=== PATIENT | male | born 1945 | race Caucasian/White ===

== ENCOUNTER 2022-11-13 01:40 | Emergency (ER) | payer MEDICARE, BC, SELFPAY ==
[2022-11-13 01:48] VITALS: BP 159/77; PULSE 54; RESP 16; TEMP 36.7; O2SAT 94
--- NOTE | 2022-11-13 02:33 | ED_ITS ---
HPI - General Adult General Date Seen: 11/13/22 Chief complaint: Post Op Complication Stated complaint: post op bleeding, right arm Time Seen by Provider: 11/13/22 01:47 Source: patient Mode of arrival: ambulatory Limitations: no limitations History of Present Illness HPI narrative: Patient is a 77-year-old male who underwent an excision of a skin lesion on his right elbow by Dr. Benitez yesterday. He had an elliptical excision of approximately 2 x 3 cm. He takes Eliquis and aspirin and these were not held prior to the procedure. The bleeding was controlled in the office without any type of closure. A few hours later he had blood running down his arm did not stop with 30 minutes of compression. He called her office and was instructed to go to the emergency department. He comes in with several layers of gauze, paper towels, cloth towel and is bleeding through them. He denies pain. He tells me that she did not want to put in any stitches because she may have to go back in and do a deeper excision based on the results of the pathology. He is not scheduled to follow-up for at least two weeks. Related Data Allergies Allergy/AdvReac Type Severity Reaction Status Date / Time No Known Drug Allergies Allergy Verified 11/13/22 01:51 Review of Systems Narrative: He has atrial fibrillation, hypertension, hyperlipidemia, history of CVA, obstructive sleep apnea, multiple orthopedic procedures. He has some chronic back pain but offers no other concerns tonight. Review of systems is otherwise noted to be negative. His electronic medical record is updated. [facility] Medical History (Updated 11/13/22 @ 02:33 by Terrell Campos MD) ASCVD (arteriosclerotic cardiovascular disease) ?I25.10 - Atherosclerotic heart disease of [place] coronary artery without angina pectoris (ICD-10) Osteoarthritis ?M19.90 - Unspecified osteoarthritis, unspecified site (ICD-10) Bimalleolar ankle fracture ?S82.843A - Displaced bimalleolar fracture of unspecified lower leg, initial encounter for closed fracture (ICD-10) Morbid obesity ?E66.01 - Morbid (severe) obesity due to excess calories (ICD-10) Erectile dysfunction ?N52.9 - Male erectile dysfunction, unspecified (ICD-10) History of CVA (cerebrovascular accident) ?Z86.73 - Personal history of transient ischemic attack (TIA), and cerebral infarction without residual deficits (ICD-10) Hyperlipidemia ?E78.5 - Hyperlipidemia, unspecified (ICD-10) Obstructive sleep apnea on CPAP ?G47.33 - Obstructive sleep apnea (adult) (pediatric) (ICD-10) Hypertension ?I10 - Essential (primary) hypertension (ICD-10) Atrial fibrillation ?I48.91 - Unspecified atrial fibrillation (ICD-10) Surgical History (Updated 11/13/22 @ 02:29 by Terrell Campos MD) History of total right hip arthroplasty ?Z96.641 - Presence of right artificial hip joint (ICD-10) Social History Non-prescribed substance use: denies use Exam Narrative: Exam Narrative: He is awake and alert and in no distress. Lungs are clear. Heart is irregularly irregular. No pitting peripheral edema. I unwrapped his right elbow. There is a 2 x 3 cm full-thickness defect. There is a clot adherent to the base of this wound. There is bleeding from the cut edges on all sides. No evidence of infection. There is exposed tendon but no exposed bone. Const: Vital Signs, click to edit/add: Vital Signs - 24 hr 11/13/22 01:48 Temperature 98.0 F Pulse Rate [Left P ulse Oximeter] 54 L Respiratory Rate 16 Blood Pressure [Ri ght Upper Arm] 159/77 H Pulse Oximetry 94 Oxygen Delivery Me thod Room Air Course Course Hospital Course: Wound is under wrapped and cleaned up. I placed two pieces of Gelfoam within the wound. These completely covered and filled the wound. The area is wrapped and he will be observed for 30 minutes to see if this controls the bleeding. Reevaluation(s) Reevaluation #1: Upon recheck there is no further bleeding. A gauze wrap is placed and he is discharged home in the care of his . Vital Signs Vital signs: Initial Vital Signs Temperature 98.0 F 11/13/22 01:48 Temperature Source Temporal Artery Scan 11/13/22 01:48 Pulse Rate 54 L 11/13/22 01:48 Pulse Rhythm Regular 11/13/22 01:48 Respiratory Rate 16 11/13/22 01:48 Blood Pressure 159/77 H 11/13/22 01:48 Blood Pressure Mean 104 11/13/22 01:48 Blood Pressure Position Semi-Fowlers 11/13/22 01:48 Pulse Oximetry 94 11/13/22 01:48 Oxygen Delivery Method Room Air 11/13/22 01:48 Vital Signs Temperature 98.0 F 11/13/22 01:48 Pulse Rate 54 L 11/13/22 01:48 Respiratory Rate 16 11/13/22 01:48 Blood Pressure 159/77 H 11/13/22 01:48 Pulse Oximetry 94 11/13/22 01:48 Oxygen Delivery Method Room Air 11/13/22 01:48 Temperature 98.0 F 11/13/22 01:48 Pulse Rate 54 L 11/13/22 01:48 Respiratory Rate 16 11/13/22 01:48 Blood Pressure 159/77 H 11/13/22 01:48 Pulse Oximetry 94 11/13/22 01:48 Oxygen Delivery Method Room Air 11/13/22 01:48 Discharge Plan Discharge Clinical Impression: Post-op bleeding Qualifiers: Surgical complication system/body Area: skin Procedure type: dermatologic Qualified Code(s): L76.21 - Postprocedural hemorrhage of skin and subcutaneous tissue following a dermatologic procedure Patient Disposition: Home, Self-Care Condition: Improved Additional Instructions: Stop Eliquis for five days. Continue aspirin. Use the right arm as little as possible for the next 48 hours. Return emergency department for bleeding that will not stop with 30 minutes of compression. Follow Up/Referrals: Huy Espinal MD [Primary Care Provider] - Stand Alone Forms: [facility]
[2022-11-13 03:15] VITALS: BP 152/86; PULSE 58; RESP 18; O2SAT 95
== END 2022-11-13 03:16 | disposition home or self-care (01) ==
LOC: ED 02:36
PROVIDERS: Emergency Provider Family Medicine; PCP Family Medicine
DX: L76.21 Postprocedural hemorrhage of skin and subcutaneous tissue following a dermatologic procedure (principal)
CPT/HCPCS: 99282

== ENCOUNTER 2023-08-19 08:37 | Day surgery (SDC) | payer MEDICARE, BC, SELFPAY ==
[2023-08-19] VITALS (9 sets, daily range): BP systolic 126–194; BP diastolic 67–106; PULSE 47–62; RESP 16; TEMP 36.3–36.8; O2SAT 94–96; BMI 49.1
[2023-08-19] MEDS: LACTATED RINGERS 1000 ML 1,000 ML 100 ML IV (08:40)
--- OUTSIDE RECORDS SUMMARY | 2023-08-19 08:40 | XMS_ITS | Clinical Summary ---
Author Name Unknown Organization [facility] Address [place], [place] [address] Care Team Providers Care Database Marketing Manager Name Role Phone Huy Espinal MD Primary Care Provider [phone] Social History Tobacco Use Types Packs/Day Years Used Date Smoking Tobacco: Never Assessed Sex and Gender Information Value Date Recorded Sex Assigned at Not on file Gender Identity Not on file Sexual Orientation Not on file Plan of Treatment Health Maintenance Due Date Last Done Comments Tdap 1956 Depression screening for age 12+ 1957 BMI (ht and wt on same day) for age 18+ 09/29/1963 Hepatitis C screening for age 18-79 09/29/1963 Tetanus booster 1965 Zoster (shingles) series for age 50+ (1 of 2) 09/29/1995 Pneumococcal series for age 65+ (1 of 1 - PCV) 2010 COVID-19 vaccine series (2022- season) 2022 02/20/2021, 06/27/2020, 05/30/2020 Influenza for age 65+ 12/05/2023 Care Teams Database Marketing Manager Relationship Specialty [place] [id number] [id number] PCP - General 09/11/08
--- OUTSIDE RECORDS SUMMARY | 2023-08-19 08:41 | XMS_ITS | Encounter Summary ---
Author Name Unknown Organization [facility] Address [address] [place] [address] Care Team Providers Care Duct Maker Name Role Phone Suad Parikh M.D. Primary Care Provider [phone] Reason for Referral * Outpatient (Routine) - Authorized Specialty Diagnoses / Procedures Referred By Kendra benitez Referred To Contact Diagnoses Occlusion And Stenosis Left Carotid Artery Procedures US Carotid Bilateral Suad Parikh M.D. [id number] [place] [phone] [facility] Region Referral ID Status Reason Start Date Expiration Date V isits Requested Visits Authorized [id number] Authorized 08/02/2023 08/01/2024 1 1 * Outpatient (Routine) - Authorized Specialty Diagnoses / Procedures Referred By Kendra t Referred To Contact Diagnoses Preoperative Exam Procedures ECG 12 Lead Suad Parikh M.D. [address] [place] [phone] [facility] Region Referral ID Status Reason Start Date Expiration Date V isits Requested Visits Authorized [id number] Authorized 08/02/2023 08/01/2024 1 1 * Outpatient (Routine) - Authorized Specialty Diagnoses / Procedures Referred By Kendra t Referred To Contact Family Medicine Suad Parikh M.D. [address] [place] [phone] [facility] Region Referral ID Status Reason Start Date Expiration Date V isits Requested Visits Authorized [id number] Authorized 08/02/2023 01/31/2025 1 1 Reason for Visit * Reason Comments Pre-op Exam Joint surgery on lef t had 08/17 in [place]. * Appointment Request (Routine) - Closed Specialty Diagnoses / Procedures Referred By Contac t Referred To Contact Family Medicine Referral ID Status Reason Start Date Expiration Date Visits Re quested Visits Authorized [id number] Closed 04/20/2023 04/19/2024 1 1 Encounter Details Date Type Department Care Team (Late st Contact Info) Description 08/02/2023 9:30 AM CDT Office Visit Department of Family Medicine, [facility], in [address] [phone] Suad Parikh M.D. [address] [place] [phone] Preoperative Exam (Primary Dx); PreDiabetes; Morbid Obesity Body Mass Index >= 35 with Comorbid Condition (HCC); Atrial Fibrillation Unspecified (HCC); Occlusion And Stenosis Left Carotid Artery; Hypothyroidism Subclinical; History Of Falling; Hypertensive Heart Disease Without Heart Failure Discharge Disposition: Home or Self Care Social History Tobacco Use Types Packs/Day Years Used Date Smoking Tobacco: Former Cigarettes 1.5 40.5 0 1966 - 04/05/2007 Smokeless Tobacco: Never Tobacco Cessation:Counseling Given: Not Answered Alcohol Use Standard Drinks/Week Comments Yes 0 (1 standard drink = 0.6 oz pur e alcohol) [facility] Utilities Answer Date Recorded In the past 12 months has e NPS, gas, oil, or water [employer] threatened to shut off services in your home? No 07/28/2023 Humiliation, Afraid, Rape, and Kick questionnair e Answer Date Recorded Within the last year, have y ou been afraid of your partner or ex-partner? No 01/19/2023 Within the last year, have y ou been humiliated or emotionally abused in other ways by your partner or ex-partner? No Within the last year, have y ou been kicked, hit, slapped, or otherwise physically hurt by your partner or ex-partner? No 01/19/2023 Within the last year, have y ou been raped or forced to have any kind of sexual activity by your partner or ex-partner? No 01/19/2023 Social Connection and Isolat ion Panel [NHANES] Answer Date Recorded In a typical week, how many times do you talk on the phone with family, friends, or neighbors? More than three times a week 12/25/2021 How often do you get togethe r with friends or relatives? Twice a week 12/25/2021 How often do you attend chur ch or latter day services? 1 to 4 times per year 12/25/2021 Do you belong to any clubs o r organizations such as spiritism groups, unions, fraternal or athletic groups, or school groups? No 12/25/2021 How often do you attend meet ings of the clubs or organizations you belong to? Never 12/25/2021 Are you , , di vorced, , never , or living with a partner? 12/25/2021 AUDIT-C Answer Date Recorded Q1: How often do you have a drink containing alc ohol? Monthly or less 12/25/2021 Q2: How many drinks containi ng alcohol do you have on a typical day when you are drinking? 1 or 2 12/25/2021 Q3: How often do you have si x or more drinks on one occasion? Never 12/25/2021 Overall Financial Resource Strain (CARDIA) Answe r Date Recorded How hard is it for you to pa y for the very basics like food, housing, medical care, and heating? Not hard at all 01/19/2023 PHQ-2 Answer Date Recorded PHQ-2 Score 0 07/28/2023 [facility] - Occupational Stress Questionnaire Answer Date Recorded Do you feel stress - tense, restless, nervous, or anxious, or unable to sleep at night because your mind is troubled all the time - these days? Not at all 02/19/2021 Exercise Vital Sign Answer Date Recorde d On average, how many days pe r week do you engage in moderate to strenuous exercise (like a brisk walk)? 0 days 07/28/2023 On average, how many minutes do you engage in exercise at this level? 0 min 07/28/2023 Hunger Vital Sign Answer Date Recorded Within the past 12 months, y ou worried that your food would run out before you got the money to buy more. Never true 07/28/19 Within the past 12 months, t he food you bought just didn't last and you didn't have money to get more. Never true 07/28/2023 PRAPARE - Transportation Answer Date Re corded In the past 12 months, has l ack of transportation kept you from medical appointments or from getting medications? No 07/05 In the past 12 months, has l ack of transportation kept you from meetings, work, or from getting things needed for daily living? No 07/28/2023 Nutrition Answer Date Recorded On average, how many serving s of fruits and vegetables do you eat per day (serving size is equal to 1 cup or approximately the size of a tennis ball)? 3-5 07/28/2023 Dental Answer Date Recorded Dental: Regular Dentist Yes 04/17/19 Employment Answer Date Recorded Employment status Retired 07/28/2023 Housing Stability Answer Date Recorded What is your living situation today? I have a [facility] place to live 01/19/2023 Education Answer Date Recorded What is the highest level of school you have completed or the highest degree you have received? 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 Gender Identity Male 07/09/2017 9:38 PM CDT Sexual Orientation Straight 07/09/2017 9: 38 PM CDT documented as of this encounter Last Filed Vital Signs Vital Sign Reading Time Taken Comments Blood Pressure 138/81 08/02/2023 9:22 AM CDT Pulse 61 08/02/2023 9:22 AM CDT Temperature 36.4 ??C (97.5 ??F) 08/02/2023 9:22 AM CD T Respiratory Rate - - Oxygen Saturation 92% 08/02/2023 9:22 AM CDT Inhaled Oxygen Concentration - - Weight 115 kg (254 lb 6.6 oz) 08/02/2023 9:22 AM CDT Height - - Body Mass Index 35.82 01/19/2023 9:34 AM CDT documented in this encounter Patient Instructions * Patient Instructions* Suad Parikh M.D. - 08/02/2023 9:30 AM CDT - Hold Eliquis for 5 days prior to surgery. - Hold furosemide on the morning of your surgery. - Hold losartan on the morning of your surgery. - Hold chlorthalidone on the morning of your surgery. - Continue remainder of prescription medications through day of surgery. documented in this encounter H&P Notes * Suad Parikh M.D. - 08/02/2023 9:30 AM CDT REASON FOR VISIT Pre-operative evaluation of risk HISTORY OF PRESENT ILLNESS Sandeep Topete is a 77 y.o. male who presents to the clinic today for a pre-op. He is feeling well with no recent illness. ALLERGIES No Known Allergies MEDICATIONS Current Outpatient Medications on File Prior to Visit Medication Sig Dispense Refill apixaban (Eliquis) 5 mg tablet Take 1 tablet (5 mg total) by mouth 2 (two) times a day. 180 tablet [address] tablet Take 1 tablet (81 mg total) by mouth daily. 90 tablet 11 atorvastatin (LIPITOR) 20 mg tablet Take 1 tablet (20 mg total) by mouth daily. 90 tablet 3 B complex-vitamin (SUPER B-50) capsule Take 1 capsule by mouth daily. chlorthalidone (HYGROTON) 25 mg tablet Take 1 tablet (25 mg total) by mouth daily. 90 tablet 11 cholecalciferol (VITAMIN D3) 50 mcg (2,000 Unit) tablet Take 2,000 Units by mouth daily. co-enzyme Q-10 (CO Q-10) 100 mg capsule Take 100 mg by mouth daily. dilTIAZem CD (CARDIZEM CD/CARTIA XT) 120 mg 24 hr capsule Take 1 capsule (120 mg total) by mouth daily. 90 capsule 11 finasteride (PROSCAR) 5 mg tablet Take 1 tablet (5 mg total) by mouth daily. 90 tablet 11 furosemide (LASIX) 20 mg tablet Take 1 tablet (20 mg total) by mouth daily as needed (pedal edema).90 tablet 11 Lactobacillus acidophilus capsule Take 1 capsule by mouth 2 (two) times a day with meals. losartan (COZAAR) 100 mg tablet Take 1 tablet (100 mg total) by mouth daily. 90 tablet 11 magnesium citrate 100 mg tablet Take 100 mg by mouth daily. metoprolol succinate (TOPROL-XL) 100 mg 24 hr tablet Take 1 tablet (100 mg total) by mouth daily. Do not crush or chew. 90 tablet 11 multivitamin tablet Take 1 tablet by mouth daily. omega-3 fatty acids-fish oil 300-1,000 mg capsule Take 2 g by mouth daily. omeprazole (PriLOSEC) [address] capsule Take 1 capsule (20 mg total) by mouth daily. 90 capsule 11 sildenafiL (Viagra) 100 mg tablet Take 1 tablet (100 mg total) by mouth daily as needed for erectile dysfunction. 30 tablet 11 tamsulosin (FLOMAX) 0.4 mg 24 hr capsule Take 1 capsule (0.4 mg total) by mouth daily. 90 capsule 11 traMADoL (ULTRAM) 50 mg tablet Take 1-2 tablets (50-100 mg total) by mouth every 6 (six) hours as needed for moderate pain or score 4-6 of 10 Indications: Chronic Pain/Nonacute Pain. 20 tablet 0 traZODone (DESYREL) 50 mg tablet Take 1-4 tablets (50-200 mg total) by mouth at bedtime as needed for sleep. 360 tablet 11 vitamin E 100 unit capsule Take 100 Units by mouth daily. clotrimazole-betamethasone (LOTRISONE) 1-0.05 % cream Apply topically 2 (two) times a day as needed(rash). 30 g 2 [DISCONTINUED] azithromycin (ZITHROMAX) 250 mg tablet Take 500 mg (2 tablets) by mouth the first day then 250 mg (1 tablet) by mouth for 4 more days. 6 tablet 0 No current facility-administered medications on file prior to visit. 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 Arthritis Hypercholesterolemia Loss Hearing Sensorineural Bilateral Obstructive Sleep Apnea Adult Atrial Fibrillation Unspecified (HCC) Insomnia Dysfunction Erectile History Of Falling Morbid Obesity Body Mass Index >= 35 with Comorbid Condition (HCC) PreDiabetes Occlusion And Stenosis Left Carotid Artery Past Medical History: Diagnosis Date Headache Chronic 11/04/2016 Hypogonadism Male 08/25/2016 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 COLONOSCOPY N/A 02/16/2019 Procedure: COLONOSCOPY; Surgeon: Emeterio Duran M.D.; Location: [facility] CACF OR ORIF ANKLE FRACTURE Right PROSTHETIC ARTHROPLASTY OF THE HIP Right Hip replacement ROTATOR CUFF REPAIR Bilateral left repair x 2 in 1988 and 2009, right repair in 2011 FAMILY HISTORY Family History Problem Relation Name Age of Onset Accident Mother Chelsea 24 House Fire COPD Father Edward Arthritis Sister Lacey Coronary artery disease Sister Lacey COPD Sister Lacey Diabetes Sister Lacey Heart disease Sister Lacey Hypertension Sister Lacey Kidney disease Sister Lacey No Known Problems Daughter Lashay No Known Problems Son Medhat Heart attack Mother's Brother Heart attack Maternal Grandmother Arthritis Other Half Brother - Rex Arthritis Other Chetan Coronary artery disease Other Chetan Cancer Other Chetan COPD Other Chetan Heart disease Other Chetan Hypertension Other Chetan Suicide Other Magalis Depression Other Magalis Arthritis Other Magalis Colon cancer Other Bernardino Arthritis Other Bernardino Coronary artery disease Other Ray Heart disease Other Ray Hypertension Other Ray Arthritis Other Ray Arthritis Other Adonis Arthritis Other Kareen PHYSICAL EXAM BP 138/81 (BP Location: Left arm, Patient Position: Sitting, Cuff Size: Large) Pulse 61 Temp 36.4 ??C Wt 115 kg SpO2 92% BMI 35.82 kg/m?? Vitals reviewed. Constitutional General: He is not in acute distress. Appearance: Normal appearance. HENT Mouth/Throat: Mouth: Mucous membranes are moist. Pharynx: Oropharynx is clear. Cardiovascular Rate and Rhythm: Normal rate and regular rhythm. Pulmonary Effort: Pulmonary effort is normal. Breath sounds: Normal breath sounds. Musculoskeletal Cervical back: Normal range of motion. Comments: 1+ pitting edema bilateral lower extremities. Skin General: Skin is warm and dry. Neurological Mental Status: He is alert. Mental status is at baseline. Psychiatric Mood and Affect: Mood normal. Behavior: Behavior normal. Thought Content: Thought content normal. Judgment: Judgment normal. Recent Results (from the past 24 hour(s)) Hemoglobin A1c Collection Time: 08/02/23 8:25 AM Result Value Hemoglobin A1c, B 6.4 (H) Thyroid Function [place] Collection Time: 08/02/23 10:17 AM Result Value TSH, Sensitive 6.7 (H) Basic Metabolic Panel Collection Time: 08/02/23 10:17 AM Result Value Potassium, P 3.4 (L) Sodium, P 141 Chloride, P 102 Bicarbonate, P 28 Anion Gap, P 11 BUN (Blood Urea Nitrogen), P 21 Creatinine 0.80 Estimated GFR (eGFR) >90 Calcium, Total, P 9.8 Glucose, P 127 CBC with Differential, Blood Collection Time: 08/02/23 10:17 AM Result Value Hemoglobin 15.5 Hematocrit 44.3 Erythrocytes 5.07 MCV 87.4 RBC Distrib Width 14.3 Platelet Count 147 Leukocytes 7.6 Neutrophils 4.89 Lymphocytes 1.08 Monocytes 1.29 (H) Eosinophils 0.24 Basophils 0.05 ECG 12 Lead Result Date: 08/02/2023 Atrial fibrillation with premature ventricular or aberrantly conducted complexes Nonspecific ST and T wave abnormality When compared with ECG of 27-Feb-2020 14:46, Premature ventricular or aberrantly conducted complexes are now present Reviewed by Rafael Mcgowan III, KUMAR ASSESSMENT / PLAN #1 Preoperative Exam #2 PreDiabetes #3 Morbid Obesity Body Mass Index >= 35 with Comorbid Condition (HCC) #4 Atrial Fibrillation Unspecified (HCC) #5 Occlusion And Stenosis Left Carotid Artery #6 Hypothyroidism Subclinical #7 History Of Falling #8 Hypertensive Heart Disease Without Heart Failure Sandeep Topete is a 77 y.o. male who I am asked to see in preoperative consult by Dr. Sheridan prior to undergoing L [facility] joint surgery. This is scheduled for 08/18/23. Patient is MEDICALLY ACCEPTABLE for planned procedure. RCRI as outlined below. Low risk but medically optimized. It is reasonable to proceed if surgery is indicated. Workup: - Recommended pre-op diagnostic workup to include: EKG, CBC, BMP ordered. Procedure risk: - Intermediate Risk (cardiac risk <5%): CEA, head/neck surgery, intraabdominal or intrathoracic surgery, orthopedic surgery, prostate surgery Cardiac risk: - History of ischemic heart disease: No (0) - History of heart failure: No (0) - History of cerebrovascular disease (stroke or TIA): Yes (+1) - Diabetes requiring pre-operative insulin: No (0) - Pre-operative creatinine >2: No (0) - High-risk surgery (intraperitoneal, intrathoracic, or suprainguinal vascular): No (0) Overall Cardiac Risk: RCRI score is Class II (1 point), indicating a 0.9% risk of a major cardiac event. Further cardiac workup prior to surgery to include: None Pulmonary Risk: - High risk diagnoses include: obstructive sleep apnea, compliant with CPAP. - Stop Bang Total Score: . Other: - DVT Risk: does not have increased risk. - Diabetes: The patient does not have diabetes. - Delirium Risk: does not have increased risk. Perioperative Medication Management: - Hold Eliquis for 5 days prior to surgery. - Hold furosemide on the morning of your surgery. - Hold losartan on the morning of your surgery. - Hold chlorthalidone on the morning of your surgery. - Continue remainder of prescription medications through day of surgery. #2 PreDiabetes #3 Morbid Obesity Body Mass Index >= 35 with Comorbid Condition (HCC) Hemoglobin A1c improved from 6.6 to 6.4. Recommend repeating a hemoglobin A1c in 6 months. #4 Atrial Fibrillation Unspecified (HCC) Rates are well controlled. He is on Eliquis. #5 Occlusion And Stenosis Left Carotid Artery He had a brain MRI/MRA completed through [facility] in 2020. He was noted to have moderate left carotid artery stenosis at that time. Will repeat a carotid ultrasound. 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 Workup was otherwise unrevealing. Low suspicion that thyroid dysfunction is contributing, however his TSH was mildly elevated when itwas last checked in 2018. Will repeat a thyroid function cascade today. #8 Hypertensive Heart Disease Without Heart Failure BP at goal. Suad Parikh M.D. documented in this encounter Miscellaneous Notes * Addendum Note - Suad Parikh M.D. - 08/02/2023 9:30 AM CDTAddended by: SUAD PARIKH on: 08/02/2023 05:30 PM Modules accepted: Orders documented in this encounter Plan of Treatment Upcoming Encounters Date Type Department Care Team (Late st Contact Info) Description 02/01/2024 8:30 AM CDT Appointment Department of Laboratory Medicine in [address] [phone] Suad Parikh M.D. [address] [place] [phone] 02/01/2024 9:30 AM CDT Office Visit Department of Family Medicine, [facility], in [address] [phone] Suad Parikh M.D. [address] [place] [phone] Discharge Disposition: Home or Self Care 02/01/2024 10:30 AM CDT Office Visit Department of Family Medicine, [facility], in [address] [phone] Suad Parikh M.D. [address] [place] [phone] Discharge Disposition: Home or Self Care Scheduled Orders Name Type Priority Associated Diagnoses Orde r Schedule Hemoglobin A1c Lab Routine PreDiabetes Expected: 02/01/2024, Expires: 10/31/2024 Carotid Bilateral Imaging RAD - Routi ne (most inpatients and all outpatients) Occlusion And Stenosis Left Carotid Artery Expected: 08/02/2023, Expires: 10/31/2024 Thyroid Function [place] Lab Routine Hypothyroidism Subclinical Expected: 08/01/2024, Expires: 10/31/2024 Scheduled Referrals Name Type Priority Associated Diagnoses Orde r Schedule Family Medicine office visit (clinic) Outpatient Referral Routine Expected: 02/01/2024, Expires: 10/31/2024 documented as of this encounter Goals Goal Patient Goal Type Associated Problems Recent Progress Patient-Stated? Author Patient/caregiver will be independent in managing appointments Arianna Thompson R.N. Note: Patient will schedule 2nd Shingrix Vaccine with pharmacy once it becomes available. documented as of this encounter Procedures Procedure Name Priority Date/Time Associated Diagnosis Comments HC T4 FREE Routine 08/02/2023 10:17 AM CDT THYROID FUNCTION CASCADE, S Routine 08/02/2023 10:17 AM CDT Hypothyroidism Subclinical THYROPEROXIDASE (TPO) ABS, S Routine 08/02/2023 10:17 AM CDT CBC WITH DIFFERENTIAL, B Routine 08/02/2023 10:17 AM CDT Preoperative Exam BASIC METABOLIC PANEL, S/P Routine 08/02/2023 10:17 AM CDT Preoperative Exam ECG Routine 08/02/2023 9:53 AM CDT Preoperative Exam documented in this encounter Results * T4 (Thyroxine), Free, Serum (08/02/2023 10:17 AM CDT) T4 (Thyroxine), Free, S 1.0 0.9 - 1.7 ng/dL 08/02/2023 3:49 PM CDT ECLR Comment: Biotin has been identified by the storage management consultant as a potential interfering substance. Higher concentrations of biotin may be found in multivitamins, hair/nail supplements, and workout supplements. If the result does not match clinical observations, repeat testing after patient refrains from the use of supplements for at least 12 hours. Blood 08/02/2023 10:1 7 AM CDT 08/02/2023 10:20 AM CDT Suad Parikh M.D. LAB BLOOD ADD-ON [facility] [address] [place] [id number], [place] ECLR [facility] in [address] [address] * Thyroperoxidase (TPO) Antibodies (08/02/2023 10:17 AM CDT) Thyroperoxidase Ab, S 6.1 <34.0 IU/mL 08/02/2023 4:32 PM CDT ECLR Blood 08/02/2023 10:1 7 AM CDT 08/02/2023 2:52 PM CDT Suad Parikh M.D. LAB BLOOD ADD-ON Performing Organization Address City/[facility]/ZIP Co de Phone Number [facility] [address] [place] [phone] [place] [address] [address] * (ABNORMAL) Thyroid Function [place] (08/02/2023 10:17 AM CDT) TSH, Sensitive 6.7(H) 0.3 - 4.2 mIU/L 08/02/2023 11:40 AM CDT CNFL Blood (Blood, Venous) 08/02/2023 10:17 AM CDT 08/02/2023 10:20 AM CDT Suad Parikh M.D. LAB BLOOD ADD-ON [facility] [address] [place] [phone], [place] CNFL [facility] in [address] [address] * (ABNORMAL) Basic Metabolic Panel (08/02/2023 10:17 AM CDT) Potassium, P 3.4(L) 3.6 - 5.2 mmol/L 08/02/2023 10:47 AM CDT CNFL Sodium, P 141 135 - 145 mmol/L 08/02/2023 10:47 AM CDT CNFL Chloride, P 102 98 - 107 mmol/L 08/02/2023 10:47 AM CDT CNFL Bicarbonate, P 28 22 - 29 mmol/L 08/02/2023 10:47 AM CDT CNFL Anion Gap, P 11 7 - 15 08/02/2023 10:47 AM CDT CNFL BUN (Blood Urea Nitrogen), P 21 8 - 24 mg/dL 08/02/2023 10:47 AM CDT CNFL Creatinine 0.80 0.74 - 1.35 mg/dL 08/02/2023 10:47 AM CDT CNFL Estimated GFR (eGFR) >90 >=60 mL/min/BSA 08/02/2023 10:47 AM CDT CNFL Comment: Estimated GFR calculated using the 2020 CKD_EPI creatinine equation. Calcium, Total, P 9.8 8.8 - 10.2 mg/dL 08/02/2023 10:47 AM CDT CNFL Glucose, P 127 70 - 140 mg/dL 08/02/2023 10:47 AM CDT CNFL Blood (Blood, Venous) 08/02/2023 10:17 AM CDT 08/02/2023 10:20 AM CDT Suad Parikh M.D. LAB BLOOD ADD-ON [facility] [address] [place] [address], [place] CNFL [facility] [place] [address] * (ABNORMAL) CBC with Differential, Blood (08/02/2023 10:17 AM CDT) Hemoglobin 15.5 13.2 - 16.6 g/dL 08/02/2023 10:33 AM CDT CNFL Hematocrit 44.3 38.3 - 48.6 % 08/02/2023 10:33 AM CDT CNFL Erythrocytes 5.07 4.35 - 5.65 x10(12)/L 08/02/2023 10:33 AM CDT CNFL MCV 87.4 78.2 - 97.9 fL 08/02/2023 10:33 AM CDT CNFL RBC Distrib Width 14.3 11.8 - 14.5 % 08/02/2023 10:33 AM CDT CNFL Platelet Count 147 135 - 317 x10(9)/L 08/02/2023 10:33 AM CDT CNFL Leukocytes 7.6 3.4 - 9.6 x10(9)/L 08/02/2023 10:33 AM CDT CNFL Neutrophils 4.89 1.56 - 6.45 x10(9)/L 08/02/2023 10:33 AM CDT CNFL Lymphocytes 1.08 0.95 - 3.07 x10(9)/L 08/02/2023 10:33 AM CDT CNFL Monocytes 1.29(H) 0.26 - 0.81 x10(9)/L 08/02/2023 10:33 AM CDT CNFL Eosinophils 0.24 0.03 - 0.48 x10(9)/L 08/02/2023 10:33 AM CDT CNFL Basophils 0.05 0.01 - 0.08 x10(9)/L 08/02/2023 10:33 AM CDT CNFL Blood (Blood, Venous) 08/02/2023 10:17 AM CDT 08/02/2023 10:20 AM CDT Suad Parikh M.D. LAB BLOOD ADD-ON Performing Organization Address [facility]/State/[facility] Co de Phone Number [facility] [address] [place] [phone], [facility] in [address] [address] * ECG 12 Lead (08/02/2023 9:53 AM CDT) Ventricular Rate ECG/Min 62 BPM MUSE QRSD Interval 106 ms MUSE QT Interval 470 ms MUSE QTC Interval 477 ms MUSE R [place] 50 degrees MUSE T Wave [place] 58 degrees MUSE 08/02/2023 9:53 AM CDT 08/02/2023 10:13 AM CDT Impressions MUSE - 08/02/2023 10:13 AM CDT Atrial fibrillation with premature ventricular or aberrantly conducted complexes Nonspecific ST and T wave abnormality When compared with ECG of 27-Feb-2020 14:46, Premature ventricular or aberrantly conducted complexes are now present Reviewed by Rafael Mcgowan III, CRAT Narrative Procedure Note Prosper Bernard M.D., M.P.H. - 08/02/2023 IMPRESSION: Atrial fibrillation with premature ventricular or aberrantly conducted complexes Nonspecific ST and T wave abnormality When compared with ECG of 27-Feb-2020 14:46, Premature ventricular or aberrantly conducted complexes are now present Reviewed by Rafael Mcgowan III, CRAT Suad Parikh M.D. ECG ORDERABLES MUSE NA documented in this encounter Visit Diagnoses Diagnosis Preoperative Exam- Primary PreDiabetes Morbid Obesity Body Mass Index >= 35 with Comorbid Condition (HCC) Atrial Fibrillation Unspecified (HCC) Occlusion And Stenosis Left Carotid Artery Hypothyroidism Subclinical History Of Falling Hypertensive Heart Disease Without Heart Failure documented in this encounter Care Teams Duct Maker Relationship Specialty Start Date End Date Suad Parikh M.D. [address] [place] [phone] PCP - General Family Medicine 08/02/23 [place] Chiropractor 01/19/23 Simone Mckeon DDS [place], [place] Dentist 01/19/23 documented as of this encounter
--- OUTSIDE RECORDS SUMMARY | 2023-08-19 08:41 | XMS_ITS | Encounter Summary ---
Author Name Unknown Organization [facility] Address [address] [place] [address] Care Team Providers Care Security Assurance Analyst Name Role Phone Huy Espinal M.D., Ph.D. Primary Care Provider Reason for Visit * Reason Comments Med Refill Encounter Details Date Type Department Care Team (Late st Contact Info) Description 05/19/2023 Refill Department of Family Medicine, [facility], in [address] [phone] Huy Espinal M.D., Ph.D. [address] [place] [phone] Med Refill Social History Tobacco Use Types Packs/Day Years Used Date Smoking Tobacco: Former Cigarettes 1.5 40.5 0 1966 - 04/05/2007 Smokeless Tobacco: Never Alcohol Use Standard Drinks/Week Comments Yes 0 (1 standard drink = 0.6 oz pur e alcohol) occsaional Humiliation, Afraid, Rape, and Kick questionnair e [...] 12/25/2021 How often do you attend chur or adventism services? 1 to 4 times per year 12/25/2021 Do you belong to any clubs o r organizations such as baptist groups, unions, fraternal or athletic groups, or [...] PHQ-2 Answer Date Recorded PHQ-2 Score 0 01/19/2023 [facility] - Occupational Stress [...] exercise (like a brisk walk)? 0 days 01/19/2023 On average, how many minutes do you engage in exercise at this level? 0 min 01/19/2023 Hunger Vital Sign Answer Date Recorded Within the past 12 months, y ou worried that your food would run out before you got the money to buy more. Never true 01/20/20 Within the past 12 months, t he food you bought just didn't last and you didn't have money to get more. Never true 01/19/2023 PRAPARE - Transportation Answer Date Re corded In the past 12 months, has l ack of transportation kept you from medical appointments or from getting medications? No 01/03 In the past 12 months, has l ack of transportation kept you from meetings, work, or from getting things needed for daily living? No 01/19/2023 Nutrition Answer Date Recorded Nutrition: EVOO Fat Source No 01/19 On average, how many serving s of fruits and vegetables do you eat per day (serving size is equal to 1 cup or approximately the size of a tennis ball)? 3-5 01/19/2023 Dental Answer Date Recorded Dental: Regular Dentist Yes 04/17/19 Employment Answer Date Recorded Employment status Retired 01/19/2023 Housing Stability Answer Date Recorded What is your living situation today? I have a [facility] place to live 01/19/2023 Education Answer Date Recorded What is the highest level of school you have completed or the highest degree you have received? 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/2023 12:15 PM [facility] Gender Identity Male 07/09/2017 9:38 PM CDT Sexual Orientation Straight 07/09/2017 9: 38 PM CDT documented as of this encounter Miscellaneous Notes * Telephone Encounter - Amairani Henson L.PMaraN. - 05/19/2023 2:51 PM [facility] Controlled substance renewal for Tramadol 50 mg: ALERT NURSING CONCERN: No prescribing plan for Tramadol 50 mg Renewal is pre-pended by interface NOT by nursing Date last renewed (start date): 02/10/2023 Last provider visit: 01/19/2023 Next provider visit due: scheduled: 08/02/2023 [facility] documented in this encounter Plan of Treatment Upcoming Encounters Date Type Department Care Team (Late st Contact Info) Description 02/01/2024 8:30 AM CDT Appointment Department of Laboratory Medicine in [address] [phone] Suad Fischer M.D. [address] [place] [phone] 02/01/2024 9:30 AM CDT Office Visit Department of Family Medicine, [facility], in [address] [phone] Suad Fischer M.D. [address] [place] [phone] Discharge Disposition: Home or Self Care 02/01/2024 10:30 AM CDT Office Visit Department of Family Medicine, [facility], in [address] [phone] Suad Fischer M.D. [address] [place] [phone] Discharge Disposition: Home or Self Care documented as of this encounter Goals Goal Patient Goal Type Associated Problems Recent Progress Patient-Stated? Author Patient/caregiver will be independent in managing appointments Arianna Thompson, RMaraN. Note: Patient will schedule 2nd Shingrix Vaccine with pharmacy once it becomes available. documented as of this encounter Visit Diagnoses Diagnosis Arthritis documented in this encounter Care Teams Security Assurance Analyst Relationship Specialty Start Date End Date Huy Espinal M.D., Ph.D. [address] [place] [phone] PCP - General 09/17/16 08/01/23 [place] Chirop[place] 01/19/23 Simone [place] Dentist 01/19/23 documented as of this encounter
--- OUTSIDE RECORDS SUMMARY | 2023-08-19 08:41 | XMS_ITS | Encounter Summary ---
Author Name Unknown Organization [facility] Address [address] [place] [address] Care Team Providers Care Fiberglass Boat Maker Name Role Phone Huy Espinal M.D., Ph.D. Primary Care Provider Reason for Visit * Reason Comments Med Refill Encounter Details Date Type Department Care Team (Late st Contact Info) Description 05/13/2023 Refill Department of Family Medicine, [facility], in [address] [phone] Huy Espinal M.D., Ph.D. [address] [place] [phone] Med Refill Social History Tobacco Use [...] How often do you attend chur or zoroastrianism services? 1 to 4 times per year 12/25/2021 Do you belong to any clubs o r organizations such as samaritan groups, unions, fraternal or athletic groups, or [...] Answer Date Recorded PHQ-2 Score 0 01/19/2023 [facility] - Occupational [...] your living situation today? I have a [facility] place to live 01/19/2023 Education Answer Date Recorded What is the highest level of school you have completed or the highest degree you have received? 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 [address] [place] [phone] 02/01/2024 9:30 AM CDT Office Visit Department of Family Medicine, [facility], in [address] [phone] Suad Fischer M.D. [address] [place] [phone] Discharge Disposition: Home or Self Care 02/01/2024 10:30 AM CDT Office Visit Department of Family Medicine, [facility], in [address] [phone] Suad Fischer M.D. [address] [place] [phone] Discharge Disposition: Home or Self Care documented as of this encounter Goals Goal Patient Goal Type Associated Problems Recent Progress Patient-Stated? Author Patient/caregiver will be independent in managing appointments General Arianna Salmon, RMaraNMara Note: Patient will schedule 2nd Shingrix Vaccine with pharmacy once it becomes available. documented as of this encounter Visit Diagnoses Diagnosis Atrial Fibrillation Unspecified (HCC) documented in this encounter Care Teams Fiberglass Boat Maker Relationship Specialty Start Date End Date Huy Espinal M.D., Ph.D. [address] [place] [phone] PCP - General 09/17/16 08/01/23 [place] Chiropractor 01/19/23 Simone Mckeon DDS [place], [place] Dentist 01/19/23 documented as of this encounter
--- OUTSIDE RECORDS SUMMARY | 2023-08-19 08:41 | XMS_ITS | Referral Summary ---
Author Name Unknown Organization [facility] Address [address] [place] [address] Care Team Providers Care Slot Key Person Name Role Phone Suad Fischer M.D. Primary Care Provider [phone] Source Comments Patient records contain information from all sites at [facility]. For routine questions regarding patient records, call [phone] during business hours, M-F 8:00 AM - 5:00 PM Central Time. Record requests for emergency care only can be directed to [phone] at any time.[facility] Encounters Date Type Department Care Team Description 08/02/2023 8:18 AM CDT - 08/02/2023 11:59 PM CDT Hospital Encounter Department of Laboratory Medicine in [address] [phone] Huy Espinal M.D., Ph.D. Diabetes Mellitus Type 2 With Other Circulatory Complication (HCC) Discharge Disposition: Home or Self Care 08/02/2023 9:30 AM CDT Office Visit Department of Family Medicine, [facility], in [address] [phone] Suad Fischer M.D. Preoperative Exam (Primary Dx); PreDiabetes; Morbid Obesity Body Mass Index >= 35 with Comorbid Condition (HCC); Atrial Fibrillation Unspecified (HCC); Occlusion And Stenosis Left Carotid Artery; Hypothyroidism Subclinical; History Of Falling; Hypertensive Heart Disease Without Heart Failure Discharge Disposition: Home or Self Care 06/25/2023 Clinical Communication Department of Family Medicine, [facility], in [address] [phone] Huy Espinal M.D., Ph.D. Form Review ([facility] PT order 06/22) from Last 3 Months Allergies No known active allergies Medications Medication Sig Dispensed Refills Start Date End Date Status multivitamin tablet Take 1 tablet by mouth daily. 07/31/2016 Active co-enzyme Q-10 (CO Q-10) 100 mg capsule Take 100 mg by mouth daily. Active cholecalciferol (VITAMIN D3) 50 mcg (2,000 Unit) tablet Take 2,000 Units by mouth daily. Active vitamin E 100 unit capsule Take 100 Units by mouth daily. Active omega-3 fatty acids-fish oil 300-1,000 mg capsule Take 2 g by mouth daily. Active B complex-vitamin (SUPER B-50) capsule Take 1 capsule by mouth daily. Active Lactobacillus acidophilus capsule Take 1 capsule by mouth 2 (two) times a day with meals. Active magnesium citrate 100 mg tablet Take 100 mg by mouth daily. Active clotrimazole-betam ethasone (LOTRISONE) 1-0.05 % cream Apply topically 2 (two) times a day as needed (rash). 30 g 2 05/01/[address] tablet Take 1 tablet (81 mg total) by mouth daily. 90 tablet 11 09/14/2022 Active furosemide (LASIX) 20 mg tabletIndications: Atherosclerotic Heart Disease Of [place] Coronary Artery Without Angina Pectoris Take 1 tablet (20 mg total) by mouth daily as needed (pedal edema). 90 tablet 11 01/19/2023 Active dilTIAZem CD (CARDIZEM CD/CARTIA XT) 120 mg 24 hr capsuleIndications :Atrial Fibrillation Unspecified (HCC) Take 1 capsule (120 mg total) by mouth daily. 90 capsule 11 01/19/2023 Active metoprolol succinate (TOPROL-XL) 100 mg 24 hr tabletIndications: Atrial Fibrillation Unspecified (HCC) Take 1 tablet (100 mg total) by mouth daily. Do not crush or chew. 90 tablet 11 01/19/2023 Active finasteride (PROSCAR) 5 mg tabletIndications: Benign Prostatic Hyperplasia Without Obstruction Take 1 tablet (5 mg total) by mouth daily. 90 tablet 11 01/19/2023 Active tamsulosin (FLOMAX) 0.4 mg 24 hr capsuleIndications :Benign Prostatic Hyperplasia Without Obstruction Take 1 capsule (0.4 mg total) by mouth daily. 90 capsule 11 01/19/2023 Active sildenafiL (Viagra) 100 mg tabletIndications: Dysfunction Erectile Take 1 tablet (100 mg total) by mouth daily as needed for erectile dysfunction. 30 tablet 11 01/19/2023 Active omeprazole (PriLOSEC) [address] capsuleIndications :Gastroesophageal Reflux Disease Take 1 capsule (20 mg total) by mouth daily. 90 capsule 11 01/19/2023 Active atorvastatin (LIPITOR) 20 mg tabletIndications: Hypercholesterolem ia Take 1 tablet (20 mg total) by mouth daily. 90 tablet 3 01/19/2023 Active chlorthalidone (HYGROTON) 25 mg tabletIndications: Hypertensive Heart Disease Without Heart Failure Take 1 tablet (25 mg total) by mouth daily. 90 tablet 11 01/19/2023 Active losartan (COZAAR) 100 mg tabletIndications: Hypertensive Heart Disease Without Heart Failure Take 1 tablet (100 mg total) by mouth daily. 90 tablet 11 01/19/2023 Active traZODone (DESYREL) 50 mg tabletIndications: Insomnia Take 1-4 tablets (50-200 mg total) by mouth at bedtime as needed for sleep. 360 tablet 11 01/19/2023 Active apixaban (Eliquis) 5 mg tabletIndications: Atrial Fibrillation Unspecified (HCC) Take 1 tablet (5 mg total) by mouth 2 (two) times a day. 180 tablet 11 05/13/2023 Active traMADoL (ULTRAM) 50 mg tabletIndications: Chronic Pain/Nonacute Pain Take 1-2 tablets (50-100 mg total) by mouth every 6 (six) hours as needed for moderate pain or score 4-6 of 10 Indications: Chronic Pain/Nonacute Pain. 20 tablet 05/19/2023 Active azithromycin (ZITHROMAX) 250 mg tabletIndications: Chronic Cough Take 500 mg (2 tablets) by mouth the first day then 250 mg (1 tablet) by mouth for 4 more days. 6 tablet 01/19/2023 Discontinued Active Problems Problem Noted Date Diagnosed Date PreDiabetes 08/02/2023 Occlusion And Stenosis Left Carotid Artery 08/01 Ataxia 08/02/2023 Hypothyroidism Subclinical 08/02/2023 Atrial Fibrillation Unspecified 07/22/2017 Insomnia 07/13/2017 Dysfunction Erectile 07/13/2017 Obstructive Sleep Apnea Adult 11/06/2016 Arthritis 11/03/2016 Loss Hearing Sensorineural Bilateral 10/22/2016 Hypertensive Heart Disease Without Heart Failure 08/09/2016 Atherosclerotic Heart Diseas e Of [place] Coronary Artery Without Angina Pectoris 08/09/2016 Hypercholesterolemia 08/09/2016 History Of Falling Morbid Obesity Body Mass Ind ex >= 35 with Comorbid Condition Resolved Problems Problem Noted Date Diagnosed Date Resolved Date Screening Colon Cancer Average Risk 12/21/2018 12/22/2018 Overview: Added automatically from request for surgery [id number] Screening Colon Cancer Average Risk 12/21/2018 11/16/2019 Overview: Added automatically from request for surgery [id number] Polycythemia Spurious 07/15/20172022 Headache Chronic 11/04/2016 01/19/2023 Hypogonadism Male 08/25/2016 01/19/2023 Asthma Mild Intermittent 08/09/201601/2018 Immunizations Name Administration Dates Next Due H1N1 All Forms 04/13/2009 HZV (ZOSTAVAX) 11/25/2011 HepA Adult 01/25/2019,03/07/2015 Influenza (IM) Preservative Free 01/14/2009 Influenza high dose QV(65 ye ars or older) (PF) 01/19/2023,01/19/2022,02/20/2021 Influenza, Quadrivalent, Adj uvanted, Preservative Free 12/27/2019 Influenza, Seasonal, Injectable 01/20/2011,01/18,02/04/2006 Influenza, Unspecified 01/18/2019,2017,01/12/2017,2015,01/13/2016,01/08/2014,12/12/2012,1 ,01/20/2011,01/14/2009, 007,02/04/2006 PCV13 11/28/2014,11/28/2014 PPSV23 11/03/2016,01/20/2005 RSV: respiratory syncytial v irus (AREXVY) recombinant vaccine 01/19/2023 RZV (SHINGRIX) 12/31/2017,09/03/2017 SARS-COV-2 (COVID-19) - ASTR AZENECA (COVISHIELD) (VAXZEVRIA)(Discontinued) 01/19/2023(Deferred: Not available from paper tube cutter - Patient will register to recieve at flu/covid clinic) SARS-COV-2 (COVID-19) - MODE RNA (12 YEARS AND OLDER) [id number] 01/29/2023 SARS-COV-2 (COVID-19) - MODE RNA BIVALENT(Discontinued) 01/19/2022 SARS-COV-2 (COVID-19) - MODERNA(Discontinued) 08/13/2021,02/20/2021,06/27/2020,2020 Td (Adult), adsorbed 09/03/2000 Td Preservative Free (TENIVA C, DECAVAC) 09/03/2000 Tdap 01/29/2023,11/24/2012,11/24/2012 TyVi (inj) 03/07/2015 influenza high dose (65 year s or older) (PF) 01/18/2019,01/21/2018,01/08/2014,2012,01/18/2012 influenza vaccine quad (FLUZONE/FLUARIX) (6 months and older)(PF) 04/13/2009 Social History Tobacco Use Types Packs/Day Years Used Date Smoking Tobacco: Former Cigarettes 1.5 40.5 0 1966 - 04/05/2007 Smokeless Tobacco: Never Tobacco Cessation:Counseling Given: Not Answered Alcohol Use Standard Drinks/Week Comments Yes 0 (1 standard drink = 0.6 oz pur e alcohol) [facility] Utilities Answer Date Recorded In the past 12 months has e [employer], gas, oil, or water [employer] threatened to shut off services in your [...] How often do you attend chur or episcopalian services? 1 to 4 times per year 12/25/2021 Do you belong to any clubs o r organizations such as lutheran groups, unions, fraternal or athletic groups, or [...] Answer Date Recorded PHQ-2 Score 0 07/28/2023 [facility] [place] of Occupat ional Health - Occupational Stress [...] your living situation today? I have a [facility] place to live 01/19/2023 Education Answer Date Recorded What is the highest level of school you have completed or the highest degree you have received? 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/2023 12:15 PM AUTHORIZATION REPRESENTATIVE Gender Identity Male 07/09/2017 9:38 PM CDT Sexual Orientation Straight 07/09/2017 9: 38 PM CDT Last Filed Vital Signs Vital Sign Reading Time Taken Comments Blood Pressure 138/81 08/02/2023 9:22 AM CDT Pulse 61 08/02/2023 9:22 AM CDT Temperature 36.4 ??C (97.5 ??F) 08/02/2023 9:22 AM CD T Respiratory Rate 18 01/19/2023 9:34 AM CDT Oxygen Saturation 92% 08/02/2023 9:22 AM CDT Inhaled Oxygen Concentration - - Weight 115 kg (254 lb 6.6 oz) 08/02/2023 9:22 AM CDT Height 179.5 cm (5' 10.67) 01/19/2023 9:34 AM C DT Body Mass Index 35.82 01/19/2023 9:34 AM CDT Plan of Treatment Upcoming Encounters Date Type Department Care Team (Late st Contact Info) Description 02/01/2024 8:30 AM CDT Appointment Department of Laboratory Medicine in [address] [phone] Suad Fischer M.D. [address] [place] [phone] 02/01/2024 9:30 AM CDT Office Visit Department of Family Medicine, [facility], in [address] [phone] Suad Fischer M.D. [address] [place] [phone] Discharge Disposition: Home or Self Care 02/01/2024 10:30 AM CDT Office Visit Department of Family Medicine, [facility], in [address] [phone] Suad Fischer M.D. [address] [place] [phone] Discharge Disposition: Home or Self Care Goals Goal Patient Goal Type Associated Problems Recent Progress Patient-Stated? Author Patient/caregiver will be independent in managing appointments General No Arianna Rudd, RMaraNMara Note: Patient will schedule 2nd Shingrix Vaccine with pharmacy once it becomes available. Medical Devices Implanted Type Area Termite Treater Device Identifier Shelf Expiration Date Model / Serial / Lot Hardware E.G. Pins/Screws/R ods-01/03/2018 Implanted:04/2017 (Quantity not on file) Hardware e.g. pins/screws/ rods Left: Ankle Hardware E.G. Pins/Screws/R ods-04/16/2020 Implanted:03/2021 (Quantity not on file) Hardware e.g. pins/screws/ rods Right: [facility] Hip Implant- 009 Implanted:04/2008 (Quantity not on file) Hip Implant Left: Hip Hip Implant-2019 Implanted:11/2019 (Quantity not on file) Hip Implant Right: Hip Description:[facility] Shoulder Implant- 000 Implanted:08/1999 (Quantity not on file) Shoulder Implant Left: Shoulder Shoulder Implant- 012 Implanted:08/2011 (Quantity not on file) Shoulder Implant Right: Shoulder Procedures Procedure Name Priority Date/Time Associated Diagnosis Comments HC T4 FREE Routine 08/02/2023 10:17 AM CDT THYROPEROXIDASE (TPO) ABS, S Routine 08/02/2023 10:17 AM CDT CBC WITH DIFFERENTIAL, B Routine 08/02/2023 10:17 AM CDT Preoperative Exam BASIC METABOLIC PANEL, S/P Routine 08/02/2023 10:17 AM CDT Preoperative Exam THYROID FUNCTION CASCADE, S Routine 08/02/2023 10:17 AM CDT Hypothyroidism Subclinical ECG Routine 08/02/2023 9:53 AM CDT Preoperative Exam HEMOGLOBIN A1C, B Routine 08/02/2023 8:2 5 AM CDT Diabetes Mellitus Type 2 With Other Circulatory Complication (HCC) COLONOSCOPY 02/16/2019 7:47 AM AUTHORIZATION REPRESENTATIVE US ABDOMEN COMPLETE Routine 07/28/2017 7 :21 AM CDT HCV AB SCRN W/REFLEX TO HCV PCR, S Routine 07/13/2017 10:30 AM CDT Wellness Screening from Last 3 Months or Most Recently Relevant to Health Maintenance Results * T4 (Thyroxine), Free, Serum (08/02/2023 10:17 AM CDT) T4 (Thyroxine), Free, S 1.0 0.9 - 1.7 ng/dL 08/02/2023 3:49 PM CDT ECLR Comment: Biotin has been identified by the paper tube cutter as a potential interfering substance. Higher concentrations of biotin may be found in multivitamins, hair/nail supplements, and workout supplements. If the result does not match clinical observations, repeat testing after patient refrains from the use of supplements for at least 12 hours. Blood 08/02/2023 10:1 7 AM CDT 08/02/2023 10:20 AM CDT Suad Fischer M.D. LAB BLOOD ADD-ON [facility] [address] [place] [address], [facility] ECLR [facility] [place] [address] * (ABNORMAL) Thyroid Function [place] (08/02/2023 10:17 AM CDT) Pathologist [facility] TSH, Sensitive 6.7(H) 0.3 - 4.2 mIU/L 08/02/2023 11:40 AM CDT CNFL Blood (Blood, Venous) 08/02/2023 10:17 AM CDT 08/02/2023 10:20 AM CDT Suad Fischer M.D. LAB BLOOD ADD-ON [facility] [address] [place] [phone], [facility] CNFL [facility] in [address] [address] * Thyroperoxidase (TPO) Antibodies (08/02/2023 10:17 AM CDT) Pathologist [facility] Thyroperoxidase Ab, S 6.1 <34.0 IU/mL 08/02/2023 4:32 PM CDT ECLR Blood 08/02/2023 10:1 7 AM CDT 08/02/2023 2:52 PM CDT Suad Fischer M.D. LAB BLOOD ADD-ON [facility] [address] [place] [phone], [facility] ECLR [facility] in [address] [address] * (ABNORMAL) CBC with Differential, Blood (08/02/2023 [...] AM CDT 08/02/2023 10:20 AM CDT Suad Fischer M.D. LAB BLOOD ADD-ON [facility] [address] [place] [address], [facility] CNFL [place] [address] * (ABNORMAL) Basic Metabolic Panel (08/02/2023 10:17 [...] AM CDT 08/02/2023 10:20 AM CDT Suad Fischer M.D. LAB BLOOD ADD-ON Performing Organization Address [facility] Co de Phone Number [facility] [address] [place] [phone], [facility] CNFL [facility] in [address] [address] * ECG 12 Lead (08/02/2023 9:53 AM CDT) Ventricular Rate ECG/Min 62 BPM MUSE QRSD Interval 106 ms MUSE QT Interval 470 ms MUSE QTC Interval 477 ms MUSE R Mobile 50 degrees MUSE T Wave Mobile 58 degrees MUSE 08/02/2023 9:53 AM CDT [...] Reviewed by Rafael Mcgowan III, CRAT Suad Fischer M.D. ECG ORDERABLES Performing Organization Address City/[facility]/ZIP Co de Phone Number MUSE NA * (ABNORMAL) Hemoglobin A1c (08/02/2023 8:25 AM CDT) Hemoglobin A1c, B 6.4(H) 4.2 - 5.6 % 08/02/2023 8:46 AM CDT CNFL Comment: Hemoglobin A1c values of 5.7-6.4 percent indicate an increased risk for developing diabetes mellitus. In diabetic patients, HbA1c goals should be discussed with healthcare provider. Blood (Blood, Venous) 08/02/2023 8:25 AM CDT 08/02/2023 8:28 AM CDT Huy Espinal M.D., Ph.D. LAB BLOOD ADD-O N [facility] [address] [place] [phone], [facility] CNFL [facility] in [address] [address] * COLONOSCOPY (02/16/2019 7:47 AM AUTHORIZATION REPRESENTATIVE) Narrative Procedure Note Emeterio Duran M.D. - 02/16/2019 7:[address] [facility] GI Patient Name: Sandeep Topete Procedure Date: 02/16/2019 7:47 AM Date of : 1945 Age: 73 Gender: Male Procedure: Colonoscopy Providers: Emeterio Duran MD, Huy Espinal (Ordering Provider) Referring Provider: Huy Espinal Pre-op Diagnoses: High risk colon cancer surveillance: Personal history of colonic polyps Post-op Diagnoses: - Two 2 to 5 mm polyps in the ascending colon, removed with a cold snare. Resected and retrieved. - The distal rectum and anal verge are normal on retroflexion view. - The examination was otherwise normal. Recommendation: - Patient has a contact number available for emergencies. The signsand symptoms of potential delayed complications were discussed with the patient. Return to normal activities tomorrow. Written discharge instructions were provided to the patient. - Resume previous diet. - Continue present medications. - Await pathology results. - Thank you, Dr Espinal, for your referral. - If the pathology report reveals no adenomatous tissue, then repeatthe colonoscopy for surveillance in 5-10 years. Findings: The perianal and digital rectal examinations were normal. Two sessile polyps were found in the ascending colon. The polyps were2 to 5 mm in size. These polyps were removed with a cold snare.Resection and retrieval were complete. The retroflexed view of the distal rectum and anal verge was normaland showed no anal or rectal abnormalities. The exam was otherwise without abnormality. Medicines: Propofol per Anesthesia Complications: No immediate complications. Procedure Details: The patient was seen, evaluated, and history reviewed. Airway and heart and lung exams were performed and were satisfactory for plannedsedation care. The risks, benefits and alternatives for the procedure and sedation were discussed andinformed consent was obtained. A procedural pause was conducted in the presence of assisting personnelto verify the correct patient identity and procedureto be performed. Throughout the procedure, the patient's blood pressure, pulse, and oxygen saturations were monitored continuously. The FLEXIBLE COLONOSCOPE was introduced underdirect vision through the anus and advanced to thececum, identified by appendiceal orifice and ileocecal valve. The colonoscopy was performed without difficulty. The patient tolerated the procedure well. The quality of the bowel preparation was evaluated using the BBPS (Austin BowelPreparation Scale) with scores of: Right Colon = 3 (entire mucosa seen well with no residual staining, small fragments of stool or opaque liquid), Transverse Colon = 3 (entire mucosa seen well with noresidual staining, small fragments of stool or opaqueliquid) and Left Colon = 2 (minor amount of residual staining, small fragments of stool and/or opaque liquid, but mucosa seen well). The total BBPSscore equals 8. The quality of the bowel preparationwas good. The ileocecal valve, appendiceal orifice,and rectum were photographed. Sedation: Anesthesia was administered by an anesthesia professional. Thefollowing parameters were monitored: oxygen saturation, heart rate, blood pressure, respiratory rate, EKG, adequacy of pulmonary ventilation,and response to care. Anesthesia was administered by an anesthesia professional. Thefollowing parameters were monitored: oxygen saturation, heart rate, blood pressure, respiratory rate, EKG, adequacy of pulmonary ventilation,and response to care. Emeterio Duran MD 02/16/2019 9:00:18 AM This report has been signed electronically. Number of Addenda: 0 Note Initiated On: 02/16/2019 7:47 AM Emeterio Duran M.D. GI PROCEDURE ORDERAB LES * US Abdomen Complete (07/28/2017 7:21 AM CDT) Anatomical Region Laterality Modality Abdomen, Ultrasound RST LOS N/A Ultr asound 07/28/2017 7:21 AM CDT Impressions 07/28/2017 7:53 AM CDT Right kidney: Measures 12.0 cm in length. Normal cortical thickness and echogenicity. No mass or hydronephrosis. Left kidney: Measures 11.7 cm in length. 3.2 cm benign minimally complex cyst with a thin avascular septation. Normal cortical thickness and echogenicity. Spleen: Measures 11.2 cm in length. Prostamegaly. Prostatic volume 84.6 mL. Electronically signed by: ?? Na Zarate MD [id number] 28-Jul-2017 07:53 Narrative 07/28/2017 7:53 AM CDT 28-Jul-2017 07:21:00 ??Exam: US Retroperitoneal Complete Indications: Polycythemia Spurious ORIGINAL REPORT - 28-Jul-2017 07:53:00 EXAM: ??US Retroperitoneal Complete COMPARISON: ? None. FINDINGS/ Procedure Note Rex Zarate M.D. - 08/02/2017 28-Jul-2017 07:21:00 Exam: US Retroperitoneal Complete Indications: Polycythemia Spurious ORIGINAL REPORT - 28-Jul-2017 07:53:00 EXAM: US Retroperitoneal Complete COMPARISON: None. FINDINGS/IMPRESSION: Right kidney: Measures 12.0 cm in length. Normal cortical thickness andechogenicity. No mass or hydronephrosis. Left kidney: Measures 11.7 cm in length. 3.2 cm benign minimally complexcyst with a thin avascular septation. Normal cortical thickness andechogenicity. Spleen: Measures 11.2 cm in length. Prostamegaly. Prostatic volume 84.6 mL. Electronically signed by: Na Zarate MD [id number] 28-Jul-2017 07:53 Matt Gorman M.D., Ph.D. [facility] US PROC EDURES * HCV AB Scrn w/Reflex to HCV PCR, S (07/13/2017 10:30 AM CDT) HCV Ab Screen, S Nonreactive Nonreactive 07/14/2017 9:14 AM CDT [facility] Blood 07/13/2017 10:3 0 AM CDT 07/13/2017 3:37 PM CDT Narrative [facility] - 07/14/2017 9:14 AM CDT Specimen Information: Specimen ID: [id number] Specimen Type: Blood Specimen Collection Start Date: 07/13/2017 10:30 AM Specimen Received Date: 07/13/2017 ??3:37 PM Specimen ID: [id number] Specimen Type: Blood Specimen Collection Start Date: 07/13/2017 10:31 AM Specimen Received Date: 07/13/2017 ??3:36 PM Huy Espinal M.D., Ph.D. 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 See document viewer. Care Teams Slot Key Person Relationship Specialty Start Date End Date Suad Fischer M.D. [id number] [phone] PCP - General Family Medicine 08/02/23 [place] Chiropractor 01/19/23 Simone Mckeon DDS [place] Dentist 01/19/23
--- OUTSIDE RECORDS SUMMARY | 2023-08-19 08:41 | XMS_ITS ---
Author Name Unknown Organization [facility] Address [address] [place] [address] Care Team Providers Care Associate Agent Insurance Sales Name Role Phone Unavailable Unavailable Unavailable Surgery Details Not on file Complications Check Surgery Details section. Procedure Estimated Blood Loss Check Surgery Details section. Procedure Findings Check Surgery Details section. Procedure Specimens Taken Check Surgery Details section.
--- OUTSIDE RECORDS SUMMARY | 2023-08-19 08:41 | XMS_ITS | Clinical Summary ---
Author Name Unknown Organization [facility] Address [address] [place] [address] Care Team Providers Care Lumber Tailer Name Role Phone Suad Fischer M.D. Primary Care Provider [phone]- [phone] Source Comments Patient records contain information from all sites at [facility]. For routine questions regarding patient records, call [phone] during business hours, M-F 8:00 AM - 5:00 PM Central Time. Record requests for emergency care only can be directed to [phone] at any time.[facility] Allergies No known active allergies Medications Medication [...] 20 mg tabletIndications: Atherosclerotic Heart Disease Of [place] Coronary Artery Without Angina Pectoris Take 1 [...] Failure 08/09/2016 Atherosclerotic Heart Diseas e Of [place] Coronary Artery Without Angina Pectoris 08/09/2016 Hypercholesterolemia 08/09/2016 History Of Falling Morbid Obesity Body Mass Ind ex >= 35 with Comorbid Condition Resolved Problems Problem Noted Date Diagnosed Date Resolved Date Screening Colon Cancer Average Risk 12/21/2018 12/22/2018 Overview: Added automatically from request for surgery [id number] Screening Colon Cancer Average Risk 12/21/2018 11/16/2019 Overview: Added automatically from request for surgery [id number] 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 Preoperative Exam (Primary Dx); PreDiabetes; Morbid Obesity Body Mass Index >= 35 with Comorbid Condition (HCC); Atrial Fibrillation Unspecified (HCC); Occlusion And Stenosis Left Carotid Artery; Hypothyroidism Subclinical; History Of Falling; Hypertensive Heart Disease Without Heart Failure Discharge Disposition: Home or Self Care 08/02/2023 8:18 AM CDT - 08/02/2023 11:59 PM CDT Hospital Encounter Department of Laboratory Medicine in [address] [phone] Huy Espinal M.D., Ph.D. Diabetes Mellitus Type 2 With Other Circulatory Complication (HCC) Discharge Disposition: Home or Self Care 06/25/2023 Clinical Communication Department of Family Medicine, [facility], in [address] [phone] Huy Espinal M.D., Ph.D. Form Review ([facility] PT order 06/22) from Last 3 Months Immunizations Name Administration Dates Next Due H1N1 [...] AZENECA (COVISHIELD) (VAXZEVRIA)(Discontinued) 01/19/2023(Deferred: Not available from audio production instructor - Patient will register to recieve at flu/covid clinic) SARS-COV-2 (COVID-19) - MODE RNA (12 YEARS AND OLDER) [id number] 01/29/2023 SARS-COV-2 (COVID-19) - MODE RNA BIVALENT(Discontinued) 01/19/2022 SARS-COV-2 (COVID-19) - MODERNA(Discontinued) 08/13/2021,02/20/2021,06/27/2020,2020 Td (Adult), adsorbed 09/03/2000 Td Preservative Free (TENIVA C, DECAVAC) 09/03/2000 Tdap 01/29/2023,11/24/2012,11/24/2012 TyVi (inj) 03/07/2015 influenza high dose (65 year s or older) (PF) 01/18/2019,01/21/2018,01/08/2014,2012,01/18/2012 influenza vaccine quad (FLUZONE/FLUARIX) (6 months and older)(PF) 04/13/2009 Family History Medical History Relation Name Comments No Known Problems Daughter Lashay COPD Father Burak Heart attack Maternal Grandmother Accident Mother Chelsea House Fire Heart attack Mother's Brother Arthritis Other 1 Half Brother - Rex Arthritis Other 2 Chetan COPD Other 2 Chetan Cancer Other 2 Chetan Coronary artery disease Other 2 Chetan Heart disease Other 2 Chetan Hypertension Other 2 Chetan Arthritis Other 3 Magalis Depression Other 3 Magalis Suicide Other 3 Magalis Arthritis Other 4 Bernardino Colon cancer Other 4 Bernardino Arthritis Other 5 Ray Coronary artery disease Other 5 Ray Heart disease Other 5 Ray Hypertension Other 5 Ray Arthritis Other 6 Adonis Arthritis Other 7 Kareen Arthritis Sister Lacey COPD Sister Lacey Coronary artery disease Sister Lacey Diabetes Sister Lacey Heart disease Sister Lacey Hypertension Sister Lacey Kidney disease Sister Lacey No Known Problems Son Medhat Relation Name Status Comments Daughter Lashay Alive Father Edbandar (Age 82) Maternal Grandmother Mother Chelsea (Age 25) House fire Mother's Brother Other 1 Half Brother - Rex (Age 63) Other 2 Chetan Alive Other 3 Magalis (Age 32) Other 4 Bernardino Alive Other 5 Ray Alive Other 6 Adonis Alive Other 7 Kareen Alive Other 8 Marine Alive Other 9 Carlos Alive Other 10 Christel Alive Other 11 Titus Alive Sister Lacey Son Medhat Alive Social History Tobacco Use Types Packs/Day Years Used Date Smoking Tobacco: Former Cigarettes 1.5 40.5 0 1966 - 04/05/2007 Smokeless Tobacco: Never Tobacco Cessation:Counseling Given: Not Answered Alcohol Use Standard Drinks/Week Comments Yes 0 (1 standard drink = 0.6 oz pur e alcohol) [facility] Utilities Answer Date Recorded In the past 12 months has e [employer], gas, oil, or water [employer] threatened to shut off services in your [...] often do you attend chur ch or rastafarian services? 1 to 4 times per year [...] Recorded PHQ-2 Score 0 07/28/2023 [facility]at [facility] - Occupational [...] money to buy more. Never true 07/28/19 24 Within the past 12 months, t he [...] your living situation today? I have a [facility] place to live 01/19/2023 Education Answer Date Recorded What is the highest level of school you have completed or the highest degree you have received? 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/2023 12:15 PM SANDING MACHINE BUFFER Gender Identity Male 07/09/2017 9:38 PM CDT [...] CDT Appointment Department of Laboratory Medicine in [address] [phone] Suad Fischer M.D. [address] [place] [phone] 02/01/2024 9:30 AM CDT Office Visit Department of Family Medicine, [facility], in [address] [phone] Suad Fischer M.D. [address] [place] [phone] Discharge Disposition: Home or Self Care 02/01/2024 10:30 AM CDT Office Visit Department of Family Medicine, [facility], in [address] [phone] Suad Fischer M.D. [address] [place] [phone] Discharge Disposition: Home or Self Care Health Maintenance Due Date Last Done Comments COVID-19 Vaccine (2022-05 4 season) 2023 01/29/2023, 01/19/2022, 08/13/2021, Additional history exists Visit: Medicare Annual Wellness 01/21/2024 , 12/29/2021 Creatinine Level (Kidney Fun ction Test) 08/01/2024 08/02/2023, 01/18/2023, 01/06/2022, Additional history exists Fasting Glucose for Diabetes Screening 08/01/2024 08/02/2023, 08/02/2023, 05/06/2023, Additional history exists Office Visit for Blood Press ure Check / Re-check 08/01/2024 08/02/2023 Potassium Level 08/01/2024 08/02/2023, 01/03, 01/06/2022, Additional history exists Sodium Level 08/01/2024 08/02/2023, 01/03, 01/06/2022, Additional history exists DTaP,Tdap,and Td Vaccines (4 - Td or Tdap) 01/29/2033 01/29/2023, 11/24/2012, 11/24/2012, Additional history exists Pneumococcal vaccine (65+ years) Completed 11/03/2016, 11/28/2014, 11/28/2014, Additional history exists Hepatitis C Screening Completed 07/13/2017, 017 Abdominal Aortic Aneurysm (A AA) Screen Discontinued 07/28/2017, 11/04/2016 Zoster Vaccines Completed 12/31/2017, 06/04/2017, 11/25/2011 Hepatitis A Vaccines Completed 01/25/2019, 03/07/20 15 Colonoscopy Discontinued 02/16/2019, 09/17/2014 Colonoscopy Discontinued 02/16/2019, 09/17/2014 Colorectal Cancer Screening Discontinued Colorectal Cancer Surveillance Discontinued Influenza Vaccine Completed 01/19/2023, , 02/20/2021, Additional history exists RSV vaccine - (32-3 6 weeks) or 60+ years Completed 01/19/2023 Depression Screening (Annual PHQ-2) Completed 08/02/2023, 07/28/2023 Fall Risk Screen (Annual) Completed 08/02/2023 Visit: Chronic Disease, age 18+ Discontinued CT Colonography Discontinued CT Colonography Discontinued Cologuard Discontinued FIT Discontinued Goals Goal Patient Goal Type Associated Problems Recent Progress Patient-Stated? Author Patient/caregiver will be independent in managing appointments Arianna Thompson RMaraNMara Note: Patient will schedule 2nd Shingrix Vaccine with pharmacy once it becomes available. Medical Devices Implanted Type Area Coarse Wire Drawer Device Identifier Shelf Expiration Date Model / Serial / Lot Hardware E.G. Pins/Screws/R ods-01/03/2018 Implanted:04/2017 (Quantity not on file) Hardware e.g. pins/screws/ rods Left: Ankle Hardware E.G. Pins/Screws/R ods-04/16/2020 Implanted:03/2021 (Quantity not on file) Hardware e.g. pins/screws/ rods Right: Ankle Description:[facility] Hip Implant- 009 Implanted:04/2008 (Quantity not on file) Hip Implant Left: Hip Hip Implant-2019 Implanted:11/2019 (Quantity not on file) Hip Implant Right: Hip Description:[facility] Shoulder Implant- 000 Implanted:08/1999 (Quantity not on [...] Circulatory Complication (HCC) COLONOSCOPY 02/16/2019 7:47 AM SANDING MACHINE BUFFER US ABDOMEN COMPLETE Routine 07/28/2017 7 :21 [...] Comment: Biotin has been identified by the audio production instructor as a potential interfering substance. Higher concentrations of biotin may be found in multivitamins, hair/nail supplements, and workout supplements. If the result does not match clinical observations, repeat testing after patient refrains from the use of supplements for at least 12 hours. Blood 08/02/2023 10:1 7 AM CDT 08/02/2023 10:20 AM CDT Suad Fischer M.D. LAB BLOOD ADD-ON [facility] [address] [place] [id number], [facility] ECLR [facility] in [address] [address] * (ABNORMAL) Thyroid Function [place] (08/02/2023 10:17 AM CDT) TSH, Sensitive 6.7(H) 0.3 - 4.2 mIU/L 08/02/2023 11:40 AM CDT CNFL Blood (Blood, Venous) 08/02/2023 10:17 AM CDT 08/02/2023 10:20 AM CDT Suad Fischer M.D. LAB BLOOD ADD-ON Performing Organization Address City/[facility]/ZIP Co de Phone Number [facility] [address] [place] [phone], [facility] CNFL [facility] in [address] [address] * Thyroperoxidase (TPO) Antibodies (08/02/2023 10:17 AM CDT) Thyroperoxidase Ab, S 6.1 <34.0 IU/mL 08/02/2023 4:32 PM CDT ECLR Blood 08/02/2023 10:1 7 AM CDT 08/02/2023 2:52 PM CDT Suad Fischer M.D. LAB BLOOD ADD-ON [facility] [address] [place] [phone], [facility] ECLR [facility] in [address] [address] * (ABNORMAL) CBC with Differential, Blood (08/02/2023 [...] CDT Suad Fischer M.D. LAB BLOOD ADD-ON [facility] [address] [place] [address], [facility] CNFL [facility] in [address] [address] * (ABNORMAL) Basic Metabolic Panel (08/02/2023 10:17 [...] CDT Suad Fischer M.D. LAB BLOOD ADD-ON [facility] [address] [place] [address], [facility] CNFL [facility] in [address] [address] * ECG 12 Lead (08/02/2023 9:53 AM CDT) Ventricular Rate ECG/Min 62 BPM MUSE QRSD Interval 106 ms MUSE QT Interval 470 ms MUSE QTC Interval 477 ms MUSE R [place] 50 degrees MUSE T Wave [place] 58 degrees MUSE 08/02/2023 9:53 AM CDT [...] III, CRAT Suad Fischer M.D. ECG ORDERABLES MUSE NA * (ABNORMAL) Hemoglobin A1c (08/02/2023 [...] Espinal M.D., Ph.D. LAB BLOOD ADD-O N [facility] [address] [place] [address], [facility] CNFL [facility] in [address] [address] * COLONOSCOPY (02/16/2019 7:47 AM SANDING MACHINE BUFFER) Narrative Procedure Note Emeterio Duran M.D. - 02/16/2019 7:47 AM CST [facility] Patient Name: Sandeep Topete Procedure Date: [...] bowel preparation was evaluated using the BBPS ([place] BowelPreparation Scale) with scores of: Right Colon [...] Prostatic volume 84.6 mL. Electronically signed by: ?Camilo Zarate MD [id number] 28-Jul-2017 07:53 Narrative 07/28/2017 7:53 AM CDT [...] mL. Electronically signed by: Na Zarate MD [id number] 28-Jul-2017 07:53 Matt Gorman M.D., Ph.D. [facility] PROC EDURES * HCV AB Scrn w/Reflex to HCV PCR, S (07/13/2017 10:30 AM CDT) HCV Ab Screen, S Nonreactive Nonreactive 07/14/2017 9:14 AM CDT [facility] Blood 07/13/2017 10:3 0 AM CDT 07/13/2017 3:37 PM CDT Narrative [facility] - 07/14/2017 9:14 AM CDT Specimen Information: Specimen ID: [id number] Specimen Type: Blood Specimen Collection Start Date: 07/13/2017 10:30 AM Specimen Received Date: 07/13/2017 ??3:37 PM Specimen ID: [id number] Specimen Type: Blood Specimen Collection Start Date: 07/13/2017 10:31 AM Specimen Received Date: 07/13/2017 ??3:36 PM Huy Espinal M.D., Ph.D. LAB MICROBIOLOG Y - BLOOD ORDERABLES [facility] [address] [place] [address], [facility] from Last 3 Months or Most Recently Relevant to Health Maintenance Advance Directives For more information, please contact: [phone] Documents on File Type Date Recorded Patient Shape Brick Molder Expl anation Advance Directives 11/18/2016 12:00 AM Leg acy document. See document viewer. Care Teams Lumber Tailer Relationship Specialty Start Date End Date Suad Fischer M.D. [address] [place] [phone] PCP - General Family Medicine 08/02/23 IESHA Hough Chiropractor 01/19/23 Simone Mckeon DDS [place], [place] Dentist 01/19/23
--- OUTSIDE RECORDS SUMMARY | 2023-08-19 08:41 | XMS_ITS | Encounter Summary ---
Author Name Unknown Organization [facility] Address [address] [place] [address] Care Team Providers Care Optical Instrument Repairer Name Role Phone Suad Fischer M.D. Primary Care Provider [phone]- [phone] Encounter Details Date Type Department Care Team (Latest Contact Info) Description 08/02/2023 8:18 AM CDT - 08/02/2023 11:59 PM CDT Hospital Encounter Department of Laboratory Medicine in [address] [phone] Huy Espinal M.D., Ph.D. [address] [place] [phone] Diabetes Mellitus Type 2 With Other Circulatory Complication (HCC) Discharge Disposition: Home or Self Care Social History Tobacco Use Types Packs/Day Years Used Date Smoking Tobacco: Former Cigarettes 1.5 40.5 0 1966 - 04/05/2007 Smokeless Tobacco: Never Alcohol Use Standard Drinks/Week Comments Yes 0 (1 standard drink = 0.6 oz pur e alcohol) occsaional [facility] Utilities Answer Date Recorded In the past 12 months has e electric, gas, oil, or water company threatened to shut off services in your [...] week 12/25/2021 How often do you attend [facility] or uatsdin services? 1 to 4 times per year 12/25/2021 Do you belong to any clubs o r organizations such as yazidi groups, unions, fraternal or athletic groups, or [...] Answer Date Recorded PHQ-2 Score 0 07/28/2023 [facility] of Occupat ional Health - Occupational Stress [...] your living situation today? I have a [facility] place to live 01/19/2023 Education Answer Date Recorded What is the highest level of school you have completed or the highest degree you have received? 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/2023 12:15 PM BACK TENDER Gender Identity Male 07/09/2017 9:38 PM CDT Sexual Orientation Straight 07/09/2017 9: 38 PM CDT documented as of this encounter Medications at Time of Discharge Medication Sig Dispensed Refills Start Date End Date apixaban (Eliquis) 5 mg tabletIndications:Atrial Fibrillation Unspecified (HCC) Take 1 tablet (5 mg total) by mouth 2 (two) times a day. 180 tablet 11 05/13/[address] tablet Take 1 tablet (81 mg total) by mouth daily. 90 tablet 11 09/14/2022 atorvastatin (LIPITOR) 20 mg tabletIndications:Hyperc holesterolemia Take 1 tablet (20 mg total) by mouth daily. 90 tablet 3 01/19/2023 B complex-vitamin (SUPER B-50) capsule Take 1 capsule by mouth daily. chlorthalidone (HYGROTON) 25 mg tabletIndications:Hypert ensive Heart Disease Without Heart Failure Take 1 tablet (25 mg total) by mouth daily. 90 tablet 11 01/19/2023 cholecalciferol (VITAMIN D3) 50 mcg (2,000 Unit) tablet Take 2,000 Units by mouth daily. clotrimazole-betamethaso ne (LOTRISONE) 1-0.05 % cream Apply topically 2 (two) times a day as needed (rash). 30 g 2 05/01/2022 co-enzyme Q-10 (CO Q-10) 100 mg capsule Take 100 mg by mouth daily. dilTIAZem CD (CARDIZEM CD/CARTIA XT) 120 mg 24 hr capsuleIndications:Atria l Fibrillation Unspecified (HCC) Take 1 capsule (120 mg total) by mouth daily. 90 capsule 11 01/19/2023 finasteride (PROSCAR) 5 mg tabletIndications:Benign Prostatic Hyperplasia Without Obstruction Take 1 tablet (5 mg total) by mouth daily. 90 tablet 11 01/19/2023 furosemide (LASIX) 20 mg tabletIndications:Athero sclerotic Heart Disease Of [place] Coronary Artery Without Angina Pectoris Take 1 tablet (20 mg total) by mouth daily as needed (pedal edema). 90 tablet 11 01/19/2023 Lactobacillus acidophilus capsule Take 1 capsule by mouth 2 (two) times a day with meals. losartan (COZAAR) 100 mg tabletIndications:Hypert ensive Heart Disease Without Heart Failure Take 1 tablet (100 mg total) by mouth daily. 90 tablet 11 01/19/2023 magnesium citrate 100 mg tablet Take 100 mg by mouth daily. metoprolol succinate (TOPROL-XL) 100 mg 24 hr tabletIndications:Atrial Fibrillation Unspecified (HCC) Take 1 tablet (100 mg total) by mouth daily. Do not crush or chew. 90 tablet 11 01/19/2023 multivitamin tablet Take 1 tablet by mouth daily. 07/31/2016 omega-3 fatty acids-fish oil 300-1,000 mg capsule Take 2 g by mouth daily. omeprazole (PriLOSEC) [address] capsuleIndications:Gastr oesophageal Reflux Disease Take 1 capsule (20 mg total) by mouth daily. 90 capsule 11 01/19/2023 sildenafiL (Viagra) 100 mg tabletIndications:Dysfun ction Erectile Take 1 tablet (100 mg total) by mouth daily as needed for erectile dysfunction. 30 tablet 11 01/19/2023 tamsulosin (FLOMAX) 0.4 mg 24 hr capsuleIndications:Benig n Prostatic Hyperplasia Without Obstruction Take 1 capsule (0.4 mg total) by mouth daily. 90 capsule 11 01/19/2023 traMADoL (ULTRAM) 50 mg tabletIndications:Chroni c Pain/Nonacute Pain Take 1-2 tablets (50-100 mg total) by mouth every 6 (six) hours as needed for moderate pain or score 4-6 of 10 Indications: Chronic Pain/Nonacute Pain. 20 tablet 05/19/2023 traZODone (DESYREL) 50 mg tabletIndications:Insomn ia Take 1-4 tablets (50-200 mg total) by mouth at bedtime as needed for sleep. 360 tablet 11 01/19/2023 vitamin E 100 unit capsule Take 100 Units by mouth daily. documented as of this encounter Plan of Treatment Upcoming Encounters Date Type Department Care Team (Late st Contact Info) Description 02/01/2024 8:30 AM CDT Appointment Department of Laboratory Medicine in [address] [phone] Suad Fischer M.D. [address] [place] [phone] 02/01/2024 9:30 AM CDT Office Visit Department of Family Medicine, [facility], in [address] [phone] Suad Fischer M.D. [address] [place] [phone] Discharge Disposition: Home or Self Care 02/01/2024 10:30 AM CDT Office Visit Department of Family Medicine, [facility], in [address] [phone] Suad Fischer M.D. [address] [place] [phone] Discharge Disposition: Home or Self Care documented as of this encounter Goals Goal Patient Goal Type Associated Problems Recent Progress Patient-Stated? Author Patient/caregiver will be independent in managing appointments General Arianna Salmon R.N. Note: Patient will schedule 2nd Shingrix Vaccine with pharmacy once it becomes available. documented as of this encounter Procedures Procedure Name Priority Date/Time Associated Diagnosis Comments HEMOGLOBIN A1C, B Routine 08/02/2023 8:2 5 AM CDT Diabetes Mellitus Type 2 With Other Circulatory Complication (HCC) documented in this encounter Results * (ABNORMAL) Hemoglobin A1c (08/02/2023 8:25 AM [...] Espinal M.D., Ph.D. LAB BLOOD ADD-O N [facility] [address] [place] [id number], [place] CNFL [facility] in [address] [address] documented in this encounter Visit Diagnoses Diagnosis Diabetes Mellitus Type 2 With Other Circulatory Complication (HCC) documented in this encounter Care Teams Optical Instrument Repairer Relationship Specialty Start Date End Date Suad Fischer M.D. [address] [place] [phone] PCP - General Family Medicine 08/02/23 Carlos Mason [place] Chiropractor 01/19/23 Simone Mckeon DDS [place], [place] Dentist 01/19/23 documented as of this encounter
--- OUTSIDE RECORDS SUMMARY | 2023-08-19 08:41 | XMS_ITS | Encounter Summary ---
Author Name Unknown Organization [facility] Address [address] [place] [address] Care Team Providers Care Cooky Machine Operator Name Role Phone Huy Espinal M.D., Ph.D. Primary Care Provider Reason for Visit * Reason Onset Date Comments Form Review 06/25/2023 [facility] PT order Encounter Details Date Type Department Care Team (Latest Contact Info) Description 06/25/2023 Clinical Communication Department of Family Medicine, [facility], in [address] [phone] Huy Espinal M.D., Ph.D. [address] [place] [phone] Form Review ([facility] PT order 06/22) Social History Tobacco Use Types Packs/Day Years [...] often do you attend chur ch or restorationist services? 1 to 4 times per year 12/25/2021 Do you belong to any clubs o r organizations such as anglican groups, unions, fraternal or athletic groups, or [...] Answer Date Recorded PHQ-2 Score 0 01/19/2023 [facility] - Occupational Stress [...] your living situation today? I have a [facility] place to live 01/19/2023 Education Answer Date Recorded What is the highest level of school you have completed or the highest degree you have received? 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 for electronic review/signature. DRUG ABUSE PROGRAM COORDINATOR: [facility] PHONE NUMBER: INFO REQUESTED: PT nimisha 3.20 INSTRUCTIONS: -Fax information to [phone] documented in this encounter Plan of Treatment Upcoming Encounters Date Type Department Care Team ([facility] Contact Info) Description 02/01/2024 8:30 AM CDT Appointment Department of Laboratory Medicine in [address] [phone] Suad Fischer M.D. [address] [place] [phone] 02/01/2024 9:30 AM CDT Office Visit Department of Family Medicine, [facility], in [address] [phone] Suad Fischer M.D. [address] [place] [phone] Discharge Disposition: Home or Self Care 02/01/2024 10:30 AM CDT Office Visit Department of Family Medicine, [facility], in [address] [phone] Suad Fischer M.D. [address] [place] [phone] Discharge Disposition: Home or Self Care documented as of this encounter Goals Goal Patient Goal Type Associated Problems Recent Progress Patient-Stated? Author Patient/caregiver will be independent in managing appointments Arianna Thompson, RMari Note: Patient will schedule 2nd Shingrix Vaccine with pharmacy once it becomes available. documented as of this encounter Visit Diagnoses Not on filedocumented in this encounter Care Teams Cooky Machine Operator Relationship Specialty Start Date End Date Huy Espinal M.D., Ph.D. [address] [place] [phone] PCP - General 09/17/16 08/01/23 Carlos Mason [place], [place] Chiropractor 01/19/23 Simone Mckeon DDS [place], [place] Dentist 01/19/23 documented as of this encounter
[2023-08-19] MEDS: CELECOXIB 200 MG CAPSULE PO (08:58)
[2023-08-19] MEDS: ACETAMINOPHEN 500 MG TABLET 1000 MG PO (08:58)
[2023-08-19] MEDS: OXYCODONE (CR) 10 MG TAB.ER.12H PO (08:59)
[2023-08-19] MEDS: SODIUM CHLORIDE 0.9 % (FLUSH) 10 ML SYRINGE IVF (08:59)
[2023-08-19] MEDS: fentaNYL 100 MCG/2 ML inj IVP (10:18)
[2023-08-19] MEDS: MIDAZOLAM HCL 1 MG/ML inj IVP (10:18)
--- NOTE | 2023-08-19 10:33 | SUR.PREOP ---
TIME?OUT:?1018 PT/RN/MDA?VERIFICATION?OF?SURGICAL?SITE Left arm,?PROCEDURE Nerve block,?AND?CONSENT OBTAINED?PRIOR?TO?INVASIVE?PROCEDURE.
[2023-08-19] MEDS: CEFAZOLIN 2 GM INJ IVP (10:35)
--- NOTE | 2023-08-19 12:45 | P.ORPRC_ITS ---
Procedure Note Date of procedure: 08/19/23 Procedure: PREOPERATIVE DIAGNOSIS: Left thumb CMC joint osteoarthritis POSTOPERATIVE DIAGNOSIS: Left thumb CMC joint osteoarthritis NAME OF OPERATION: Left thumb CMC arthroplasty (LRTI), EPB transfer SURGEON: Tanvir Sheridan MD SUPERVISOR ELECTRONICS ASSEMBLY: Tiffanie Mejia PA-C ANESTHESIA: Axillary block plus monitored anesthesia care ESTIMATED BLOOD LOSS: 0 mL COMPLICATIONS: None SPECIMENS: None DRAINS: None PREOPERATIVE ANTIBIOTICS: Ancef 2 grams INDICATIONS: The patient is a 77-year-old with a history of left thumb CMC joint osteoarthritis. Despite appropriate nonoperative management, including activity modification, antiinflammatories, [id number]-[id number]-nzdldxa pain medication, bracing, occupational therapy, and injections they continue to have pain and disability. Operative intervention was offered. The risks, benefits and expected outcomes were discussed in detail. These included but were not limited to: Infection, bleeding, injury to blood vessel or nerve, venous thromboembolism. All questions were answered to their satisfa ction. Use of an doctor's assistant was necessary for patient positioning, soft tissue retraction, wound closure and dressing and splint application. PROCEDURE: An axillary block was placed by anesthesia. The patient was placed supine on the operating room table. IV sedation was administered. The left upper extremity was prepped and draped in the usual sterile fashion. The limb was exsanguinated with the Pineda bandage. The pneumatic tourniquet was inflated to 250 mmHg. A longitudinal incision was made just dorsal to the 1st dorsal compartment at the base of the thumb. Subcutaneous dissection was taken with tenotomy scissors. Several small crossing veins were cauterized and divided. The base of the thumb metacarpal was exposed. The CMC joint capsule was incised longitudinally. Subperiosteal dissection of the trapezium was carried both dorsally and volarly. Likewise, the base of the thumb metacarpal was subperiosteally exposed. The radial sensory nerve was encountered and was car efully protected throughout the case. The trapezium was dissected free with the 15 blade and the [place] elevator. It was removed piecemeal. Attention was then turned to the FCR graft harvest. A transverse incision was made at the musculotendinous junction of the FCR in the volar forearm. Subcutaneous dissection was taken with tenotomy scissors to the tendon. The tendon was freed up from the muscle fibers and was divided transversely. We then pulled the tendon graft into the distal incision at the base of the thumb. We placed a 2-0 FiberWire suture in the deep capsule. A 2.8 mm socket was drilled on the radial side of the base of the index finger metacarpal. A loop of labral tape was placed in the socket and secured with a 3 mm x 8 mm BioComposite anchor. A guide pin was drilled through the dorsum of the base of the thumb metacarpal exiting at the volar peak of the base of thumb metacarpal. A 5 mm tunnel was drilled. The tendon passer was placed through the tunnel. We pulled the tendon graft and both limbs of the labral tape into the tunnel. We maximally tensioned the graft and then placed a 4.75 x 15 mm Arthrex BioComposite tenodesis screw just distal to the graft. The graft was then pulled proximally and was secured to the dorsal bone of the base of the metacarpal with 2-0 FiberWire suture x2. We then used our previously placed 2-0 FiberWire suture in the deep capsule and folded the graft back and forth over these sutures. The graft was placed in the depth of the wound and this FiberWire suture was tied over the top to secure it in position. Given the amount of hyperextension through the thumb MP joint we elected to transfer the extensor pollicis brevis tendon. It was therefore freed up and was divided just proximal to the MP joint. It was then secured to the periosteum of the thumb metacarpal, proximal to the MP joint with a 3-0 Vicryl. The wound was irrigated with normal saline. The capsule was closed with a 3-0 Vicryl in an interrupted [id number]-bn-nfuib fashion. Wounds were closed with 3-0 Vicryl and a 4-0 Monocryl. Glue was used to seal the skin. A dry dressing and short-arm thumb spica splint were applied, the tourniquet was released. Sponge and needle counts were correct x 2. The patient tolerated the procedure well. There were no apparent complications. They were carefully transferred to the hospital bed and taken to the postanest hesia care unit in satisfactory condition. PLAN: The patient will be discharged to home. They will work on ice and elevation of the hand. They will follow up in the office next week for wound check and three views of the thumb, out of the splint prior to being seen, in preparation for thumb spica cast immobilization.
--- NOTE | 2023-08-19 12:49 | W.ANESCHARGE ---
Anesthesia Charges Start Date/Time Anesthesia Start Date: 08/19/23 Anesthesia Start Time: 10:34 Stop Date/Time Anesthesia Stop Date: 08/19/23 Anesthesia Stop Time: 12:53 Summary Extremes of Age - Over 70 or under 1: MDA
--- NOTE | 2023-08-19 12:50 | W.PM.NB ---
Nerve Block Nerve Block Time Seen by Provider: 10:25 Date Seen: 08/19/23 Type of block requested by surgeon for post-operative analgesia: axillary Side: left Time out performed: Yes Verification of patient name: Yes Verification of date of : Yes Site marking: site marked Name of person performing procedure: Darci Continuous monitoring Was continuous monitoring of O2 sat, B/P, cardiac rehabilitation program director, recorded every 15 minutes?: Yes Procedure Checklist: sterile prep, needles and gloves Ultrasound guided. Images saved: Yes Medications given in 5ml increments after negative aspiration: Ropivicaine %: 0.5 mL: 30 Needle gauge: 22 Patient tolerated procedure well: Yes Additional comments: Needle noted adjacent to nerve Block Charges Block Charge (with Pro Fee): Brachial Plexus Use of Ultrasound Machine for Block: Yes- US Guidance/pain block
--- NOTE | 2023-08-19 13:30 | W.ANESCHARGE ---
Anesthesia Charges Start Date/Time Anesthesia Start Date: 08/19/23 Anesthesia Start Time: 10:34 Stop Date/Time Anesthesia Stop Date: 08/19/23 Anesthesia Stop Time: 12:53 Summary Extremes of Age - Over 70 or under 1: CREDIT AND COLLECTIONS REPRESENTATIVE
== END 2023-08-19 14:53 | disposition home or self-care (01) ==
LOC: OR 08:38
PROVIDERS: PCP Family Medicine; Visit Provider Orthopaedic Surgery
PROC: (CPT 25447; principal; 2023-08-19 11:00)
DX: M18.12 Unilateral primary osteoarthritis of first carpometacarpal joint, left hand (principal); G89.18 Other acute postprocedural pain
CPT/HCPCS: 25447; 25310; 01830; 64415; 76942; 99100; A4580; A9270; C1713; J0690; J1100; J2250; J2405; J2704; J2795; J3010; J7120

== ENCOUNTER 2023-12-09 07:30 | Outpatient (RCR) | payer MEDICARE, BC, SELFPAY ==
--- NOTE | 2023-10-15 10:41 | OT.OPOE ---
OT Outpatient Ortho Eval OT Outpatient Ortho Eval* Start: 10/14/23 16:20 Freq: Status: Active Protocol: Document 10/15/23 10:36 AMB (Rec: 10/15/23 10:37 AMB [id number]) E-signed By Rosa Ramirez, OTR/L, CLT, SENIOR CHEMICAL ENGINEER OT OP Ortho Eval Details Complexity Complexity Low Insurance Information Insurance Information Medicare B Outpatient History/Precautions Current Condition/Medical Diagnosis Referring Provider Dr Sheridan Medical Diagnoses LUE thumb CMC arthroplasty ( EPB transfer) Treatment Diagnosis Pain, weakness, limited AROM in the LUE hand Date of Onset 08/19/23 Medical Conditions Heart Condition,Arthritis Other Conditions PMH (copied from ortho chart): H/O thumb surgery (Acute 08/18) Left thumb CMC arthroplasty ( LRTI), EPB transfer (08/19/2023 Dr. Sheridan) Z98.890 - Other specified postprocedural states (ICD-10) Osteoarthritis of right knee ( Acute) Early Right knee medial and lateral compartment osteoarthritis M17.11 - Unilateral primary osteoarthritis, right knee ( ICD-10) Osteoarthritis of carpometacarpal (CMC) joint of right thumb (Acute) M18.11 - Unilateral primary osteoarthritis of first carpometacarpal joint, right hand (ICD-10) ASCVD (arteriosclerotic cardiovascular disease) (Acute ) I25.10 - Atherosclerotic heart disease of [place] coronary artery without angina pectoris (ICD-10) Osteoarthritis (Acute) M19.90 - Unspecified osteoarthritis, unspecified site (ICD-10) Morbid obesity (Acute) E66.01 - Morbid (severe) obesity due to excess calories (ICD-10) Erectile dysfunction (Acute) N52.9 - Male erectile dysfunction, unspecified (ICD- 10) Hyperlipidemia (Acute) E78.5 - Hyperlipidemia, unspecified (ICD-10) Obstructive sleep apnea on CPAP (Acute) G47.33 - Obstructive sleep apnea (adult) (pediatric) (ICD -10) Hypertension (Acute) I10 - Essential (primary) hypertension (ICD-10) Atrial fibrillation (Acute) I48.91 - Unspecified atrial fibrillation (ICD-10) Medical History (Updated 09/19 @ 09:04 by Ele Ceja) ASCVD (arteriosclerotic cardiovascular disease) I25.10 - Atherosclerotic heart disease of [place] coronary artery without angina pectoris (ICD-10) Osteoarthritis M19.90 - Unspecified osteoarthritis, unspecified site (ICD-10) Bimalleolar ankle fracture S82.843A - Displaced bimalleolar fracture of unspecified lower leg, initial encounter for closed fracture (ICD-10) Morbid obesity E66.01 - Morbid (severe) obesity due to excess calories (ICD-10) Erectile dysfunction N52.9 - Male erectile dysfunction, unspecified (ICD- 10) History of CVA ( cerebrovascular accident) Z86.73 - Personal history of transient ischemic attack (TIA ), and cerebral infarction without residual deficits (ICD -10) Hyperlipidemia E78.5 - Hyperlipidemia, unspecified (ICD-10) Obstructive sleep apnea on CPAP G47.33 - Obstructive sleep apnea (adult) (pediatric) (ICD -10) Hypertension I10 - Essential (primary) hypertension (ICD-10) Atrial fibrillation I48.91 - Unspecified atrial fibrillation (ICD-10) Surgical History (Updated @ 13:34 by Skye Sigala PA-C) H/O thumb surgery (08/19/23) Z98.890 - Other specified postprocedural states (ICD-10) H/O repair of rotator cuff (~ 1989) Z98.890 - Other specified postprocedural states (ICD-10) History of arthroscopy of left shoulder (10/20/11) Z98.890 - Other specified postprocedural states (ICD-10) History of arthroscopy of right shoulder (07/30/15) Z98.890 - Other specified postprocedural states (ICD-10) S/P ORIF (open reduction internal fixation) fracture ( 04/16/20) Z98.890 - Other specified postprocedural states (ICD-10) Z87.81 - Personal history of ( healed) traumatic fracture ( ICD-10) 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) Z96.642 - Presence of left artificial hip joint (ICD-10) 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) Z96.641 - Presence of right artificial hip joint (ICD-10) Medications (copied from ortho chart): apixaban (Eliquis) 5 mg PO BID aspirin 81 mg PO DAILY atorvastatin 20 mg PO DAILY chlorthalidone 25 mg PO DAILY clobetasol 0.05% topical BID clotrimazole-betamethasone 1-0 .05 % applic topical BID PRN diltiazem HCl CD 120 mg PO DAILY finasteride 5 mg PO DAILY furosemide 20 mg PO DAILY PRN losartan 100 mg PO DAILY metoprolol succinate ER 100 mg PO DAILY mupirocin 2% 1 applic topical BID omeprazole 20 mg PO DAILY tamsulosin 0.4 mg PO DAILY tramadol 50 - 100 mg PO Q6H PRN trazodone 50 - 200 mg PO QPM PRN Medical/Functional History Medical History Reviewed Yes Social History Employment Status Retired Hobbies Vacationing Ortho Subjective Subjective Subjective Pt states he feels he is doing well but notices that he really isn't using his left thumb much, feels his hand is weak, struggles with gripping, pinching and gripping. Pt sometimes has difficulty with buttoning buttons or small zippers or picking up small things like a pill, opening and closing jars/bottles due to hand being weak. Pt states he has minimal pain, more of a discomfort than pain. Goniometric Comments Goniometric Comments Goniometric Comments 10/15/23 Pt demonstrates AROM withing functional limits in the LUE (mild limitations in shoulder due to arthritis) with the exception of the thumb and wrist. AROM of the LUE thumb and wrist are as follows: Wrist: Flex is 75 Ext is [address] is 15 Sup is 85 Pro is 65 Thumb: IP is 50 Radial abd is 50 Palmar abd is 35 Opposition is to PIP of 5th. Composite fist is full but tight at EROM. Hand Pinch/Official Court Interpreter Strength Hand Pinch/Official Court Interpreter Strength Hand Pinch/Official Court Interpreter Strength Left Hand,Right Hand Left Hand Official Court Interpreter Strength Position 1 in Elbow 50 Flexion (lbs) Lateral Pinch Strength (lbs) 7 Three Point Pinch (lbs) [address] Interpreter Strength Position 1 in Elbow 70 Flexion (lbs) Lateral Pinch Strength (lbs) 18 Three Point Pinch (lbs) 12 OT Problems Problems Problems Decreased Strength,Decreased Range of Motion,Decreased Dexterity,Lifting,Gripping, Pinching Other Problems Opening Containers Patient Potential Good Assessment Assessment Assessment Pt is a very pleasant 78yo referred to OT 8 weeks s/p LUE CMC arthroplasty. Pt is doing well but demonstrates mild limitations in ROM and strength in the LUE wrist and thumb. Due to these limitations, pt has trouble with ADLs and IADLs that require lifting, gripping, and pinching with the LUE. Pt will benefit from skilled OT intervention to address deficits and restore full, pain-free use of the LUE. Occupational Therapy Treatment Plan - OP Potential Rehabilitation Potential Good Set Goals Goals Set with Patient Yes Goals Goals 1. Pt will be independent and compliant with HEP in order to resume full, pain-free use of the involved UE. 3 weeks 2. Pt will demonstrate full, pain-free AROM of the involved UE in order to improve ability to grasp and hold. 6 weeks 3. Pt will demonstrate pain- free soil analyst and pinch strength comparable to the uninvolved side in order to improve functional grasp, hold, reach, and lifting ability needed to complete self-care, leisure tasks, and work activities. 8 weeks. Treatment Plan Treatment Plan Evaluation,Edema Control,Joint Mobilization,Manual Therapy, Splinting,Ultrasound,Wound Care/Scar Management, Therapeutic Exercise, Therapeutic Activities,Self Care/Home Management Expected Frequency 1-2x Week Expected Duration 4-6 Weeks Home Program Home Program Home Program Initiated Home Program Specifics Provided training and practice in resisted soil analyst, straight fist, tip pinch, and latera pinch with orange TP, resisted thumb radial abd with yellow band and resisted palmar abd with yellow band. Certification Certification Statement I Certify That: Therapy Services Provided, Therapy Plan Established, Therapy Plan Reviewed Certification Information Clinic ID # [id number] Initial Certification Date 10/15/23 Recertification Due Date 01/13/24 Provider Signature Required Yes Provider Signature Shows Agreement With POC & Medical Necessity Physician NPI Number Write NPI# Here Physician Comment/Change Comment or Changes Physician Signature & Date Requested Please Sign/Date Here
== END 2023-12-09 14:25 | disposition home or self-care (01) ==
PROVIDERS: PCP Family Medicine; Visit Provider Orthopaedic Surgery
DX: Z98.890 Other specified postprocedural states (principal); Z51.89 Encounter for other specified aftercare
CPT/HCPCS: 97035; 97110; 97140; 97165; 97530; X5282

== ENCOUNTER 2024-10-09 07:30 | Outpatient (RCR) | payer MEDICARE, BC, SELFPAY ==
--- NOTE | 2024-09-12 11:19 | PT.OPEX ---
PT [place] Outpatient Eval PT [facility] Outpatient Eval Start: 09/12/24 08:37 Freq: Status: Active Protocol: Document 09/12/24 08:37 BAO (Rec: 09/12/24 09:02 BAO [id number]) E-signed By Shelby King DPT Physical Therapy Outpatient Evaluation Insurance Information Recert Due Date 12/11/24 Insurance Name Medicare B,Blue Cross/Blue Shield Medical Diagnosis R hip greater trochanteric bursitis Treating Diagnosis R hip/buttock pain, R ITB tightness, core/hip/glut weakness Subjective Subjective Patient reports chronic R hip/buttock pain with period flare ups. States his last flare up of pain was 1-2 weeks ago. He has been feeling better the last several days. Reports being active at home, out in the yard, doing some landscape work this spring. States he has less pain, stiffness when he stays active and keeps moving. But if he over does it, he will have some flare ups of muscle pain and soreness the next couple of days. Main c/o stiffness this session. Denies R hip/buttock pain this morning. When flared up, pain can get up to 7-8/10. Pain localized to R lateral hip, R buttock. Denies any pain down R LE. Not needing any pain meds. Hasn't been using ice/heat. He is using a massager regularly, that has been helpful. Hx of MOUNA on R and L. Also reports hx of some back pain and neck pain issues. He goes to the chiropractor 1x/ week (has been going for 4+ years). States he need R shoulder replaced, scheduled for later this year - hx of 2 RCR surgeries on R shoulder. Date of Last 08/07/24 Physician Visit Current Work Status Retired Precautions Treatment HTN, R MOUNA, L MOUNA, L ankle replacement, stroke, OA, Precautions/ neck/back pain, R RCR x 2 and reports needing R Contraindications shoulder replacement which is planned for later this year. Assessment Assessment/ Patient is a 78 year old male with R hip/buttock pain, Impression R ITB tightness, core/hip/glut weakness. He denies pain this session. Reports pain flares up periodically with last flare up about 1-2 weeks ago. Pain can get up to 7-8/10 when flared up. He is not using pain meds , ice, or heat. He uses a massager at home which has been helpful. Goes to chiropractor 1x/week for the last 4+ years for neck adjustments and general maintenance. Patient is tight, tender with palpation R ITB and R lateral hip/buttock region. Core/hip/glut weakness noted with hx of MOUNA R/L. Patient is amb without AD. Denies any recent falls. Patient is hoping to get a home program established for ongoing management of his chronic R hip/buttock pain. Able to initiate some exercises this session. Tolerated well. Issued for HEP. Patient would benefit from skilled PT for pain/sx management, improved R hip/ITB mobility, core/hip/glut/LE strengthening, and establishment of HEP. Plan of Care Rehabilitation Good Potential Physical Therapy 1. Decrease R hip/buttock/ITB pain to less than/equal Goals to 3/10 with daily/home/yard activities and with the progression of PT activities over the next 4-6 weeks. 2. Improve R hip/ITB mobiltiy over the next 4-6 weeks for improved gait mechanics, return to daily/home/yard activities with ease, and for decreased stress to R lateral hip/buttock for decreased pain. 3. Improve hip/glut/LE/core strength over the next 8- 10 weeks for improved tolerance for daily/home/yard activities with decreased stress on R lateral hip/ buttock and for decreased R hip/buttock pain. 4. Patient will be I with HEP within 10 weeks for progression toward above goals, ongoing self management of pain/sx, ongoing self improvements in R hip ROM/mobility/strength, and for return to daily/home /yard activities without flare up of pain. Coordination/ Referral Source Communication With Treatment Plan/ Manual Therapy,Therapeutic Exercises Direct Interventions Frequency/Duration 1x/week as needed Patient Will Be Completion of LTG(s),Skills Plateau,Independent w/HEP, Discharged From Independently Progressing Therapy Evaluation Billing Untimed Code 22 Treatment Minutes Complexity Moderate Certification Information Initial 09/12/24 Certification Date Ending Certification 12/11/24 Date Provider Signature Yes Required Provider Signature POC & Medical Necessity Shows Agreement With Physician NPI Number Write NPI# Here Physician Comment/ : Change Physician Signature Please Sign/Date Here & Date Requested
== END 2025-02-06 23:59 | disposition home or self-care (01) ==
PROVIDERS: PCP Family Medicine; Visit Provider Orthopaedic Surgery
DX: M70.61 Trochanteric bursitis, right hip (principal); Z96.611 Presence of right artificial shoulder joint; M79.18 Myalgia, other site; Z51.89 Encounter for other specified aftercare
CPT/HCPCS: 97110; 97140; 97162

== ENCOUNTER 2024-11-28 06:59 | Day surgery (SDC) | payer MEDICARE, BC, SELFPAY ==
[2024-11-28] VITALS (23 sets, daily range): BP systolic 136–179; BP diastolic 76–100; PULSE 47–72; RESP 14–18; TEMP 35.4–36.9; O2SAT 90–100; BMI 31.2
[2024-11-28] MEDS: LACTATED RINGERS 1000 ML 1,000 ML 100 ML IV (07:30)
[2024-11-28] MEDS: SODIUM CHLORIDE 0.9 % (FLUSH) 10 ML SYRINGE IVF (07:30)
--- NOTE | 2024-11-28 08:33 | SUR.PREOP ---
TIME?OUT:?0837 PT/RN/MDA?VERIFICATION?OF?SURGICAL?SITE,?PROCEDURE,?AND?CONSENT OBTAINED?PRIOR?TO?INVASIVE?PROCEDURE.
[2024-11-28] MEDS: ACETAMINOPHEN 500 MG TABLET 1000 MG PO ×3 (08:35→20:52)
[2024-11-28] MEDS: CELECOXIB 200 MG CAPSULE PO (08:35)
[2024-11-28] MEDS: MIDAZOLAM HCL 1 MG/ML inj IVP (08:38)
[2024-11-28] MEDS: TRANEXAMIC ACID 100 MG/ML INJ 1000 MG IV (09:10)
--- NOTE | 2024-11-28 09:28 | SUR.OPER ---
PATIENT QUESTIONS ANSWERED SATISFACTORILY PREOPERATIVELY. PATIENT BROUGHT TO OR #3 PER CART FOLLOWING THE BLOCK. Patient positioned supine on OR #3 bed for the intubation.? Perioperative team wrapped the?left arm in a neutral position on the pt. abdomen with the drawsheet.? Right arm elevated on an IV pole in a padded strap. Final approval of positioning by surgeon.
--- NOTE | 2024-11-28 10:03 | P.ANES_ITS ---
Anesthesia Charges Start Date/Time Anesthesia Start Date: 11/28/24 Anesthesia Start Time: 08:45 Stop Date/Time Anesthesia Stop Date: 11/28/24 Anesthesia Stop Time: 11:01 Summary Extremes of Age - Over 70 or under 1: MDA Coding CPT Codes CPT Codes: ANESTH SHOULDER REPLACEMENT - 67371 ([id number]) P3 - PATIENT W/SEVERE SYS DISEASE, QK - COMMUNITY SERVICE COORDINATOR 2-4 CNCRNT ANES PROC, QX - LINSEED CAKE TRIMMER SVC W/ MD MED DIRECTION Additional Codes: Summary - Extremes of Age - Over 70 or under 1: MDA ([id number])
--- NOTE | 2024-11-28 10:03 | P.NB_ITS ---
Nerve Block Nerve Block Time Seen by Provider: 08:40 Date Seen: 11/28/24 Type of block requested by surgeon for post-operative analgesia: supraclavicular Side: right Time out performed: Yes Verification of patient name: Yes Verification of date of : Yes Site marking: site marked Name of person performing procedure: Darci Continuous monitoring Was continuous monitoring of O2 sat, B/P, environmental monitoring technician, recorded every 15 minutes?: Yes Procedure Checklist: sterile prep, needles and gloves Ultrasound guided. Images saved: Yes Medications given in 5ml increments after negative aspiration: Ropivicaine %: 0.5 mL: 20 Needle gauge: 22 Precedex (mcg): 25 Patient tolerated procedure well: Yes Block Charges Block Charge (with Pro Fee): Brachial Plexus Use of Ultrasound Machine for Block: Yes- US Guidance/pain block
--- NOTE | 2024-11-28 10:03 | W.ANESCHARGE ---
Anesthesia Charges Start Date/Time Anesthesia Start Date: 11/28/24 Anesthesia Start Time: 08:45 Stop Date/Time Anesthesia Stop Date: 11/28/24 Anesthesia Stop Time: 11:01 Summary Extremes of Age - Over 70 or under 1: MDA Coding CPT Codes CPT Codes: ANESTH SHOULDER REPLACEMENT - 32345 ([id number]) P3 - PATIENT W/SEVERE SYS DISEASE, QK - HYDRAMATIC SPECIALIST 2-4 CNCRNT ANES PROC, QX - WATCH TECHNICIAN SVC W/ MD MED DIRECTION Additional Codes: Summary - Extremes of Age - Over 70 or under 1: MDA ([id number])
--- NOTE | 2024-11-28 10:40 | CRLHL7_ITS ---
For Patients: As a result of the Cures Act, medical imaging exams and procedure reports are released immediately into your electronic medical record. You may view this report before your referring provider. If you have questions, please contact your health care provider. Indication: Postop RSA Technique: Two views right shoulder Findings/Impression: Hardware from a right reverse total shoulder arthroplasty is in satisfactory position. Bone alignment is normal. No sign of acute fracture. Postop changes are within normal limits. Dictated by Terrell Zepeda MD @ 11/28/2024 11:29:49 AM (Electronically Signed)
--- NOTE | 2024-11-28 10:43 | P.ORPRC_ITS ---
Procedure Note Date of procedure: 11/28/24 Procedure: PREOPERATIVE DIAGNOSIS: Right shoulder rotator cuff tear arthropathy POSTOPERATIVE DIAGNOSIS: Right shoulder rotator cuff tear arthropathy NAME OF OPERATION: Right upper extremity reverse shoulder arthroplasty, biceps tenodesis SURGEON: Tanvir Sheridan MD RUG CLEANER: BUDDY Luna ANESTHESIA: General endotracheal ESTIMATED BLOOD LOSS: 50 mL COMPLICATIONS: None SPECIMENS: None DRAINS: None PREOPERATIVE ANTIBIOTICS: Ancef 2 grams IMPLANTS: 1. Tornier 25mm x 35mm baseplate 2. 39mm standard glenosphere 3. 6B humeral stem 4. High eccentric +0 humeral tray 5. 39mm +6 polyethylene INDICATIONS: The patient is a 79-year-old with a longstanding history of severe, unrelenting right shoulder pain secondary to rotator cuff tear arthropathy. Despite appropriate nonoperative management, including activity modification, anti-inflammatories, [id number]-[id number] pain medication, physical therapy, and injections they continue to have pain and disability. Operative intervention was offered. The risks, benefits and expected outcomes were discussed in detail. These included but were not limited to: Infection, bleeding, injury to blood vessel or nerve, venous thromboembolism. All questions were answered to their satisfaction. Use of an field administrative assistant was necessary throughout the case for patient positioning and safety, soft tissue retraction, and closure. PROCEDURE: General anesthesia was administered. The patient was placed in the lazy beach chair position on the operating room table. The right upper extremity was prepped and draped in the usual sterile fashion. A standard deltopectoral incision was made. Subcutaneous dissection was taken with electrocautery to the deltopectoral interval. The cephalic vein was mobilized, lateral branches were cauterized. The vein was taken medially with the pectoralis. We bluntly entered the deltopectoral interval. We freed up the deltoid. The upper 1/3 of the insertion of the pectoralis was divided with cautery. The static retractor was placed. The clavipectoral fascia and CA ligament were divided. The circumflex vessels were controlled with electrocautery. The biceps was dissected out of the bicipital groove, was tagged with a #2 FiberWire suture and divided proximally. A fiberWire suture was placed in the subscapularis. The subscap was subperiosteally elevated off of the lesser tuberosity. The humeral head was delivered into the wound. The intramedullary humeral cutting guide was placed. We made the cut at the anatomic neck, in 30? of retroversion. Humeral sounds were used to assess the diameter of the canal. The broach was placed and had good rotational stability. The calcar reamer was used and the protective base plate cover was placed. Attention was then turned to the glenoid. Hohmann retractors were placed feather baler iorly. The labrum and biceps stump were sharply debrided. The origin of the inferior glenohumeral ligaments were subperiosteally released off of the glenoid. The drill guide was placed. The guide pin was placed in 0? of cephalic tilt. The reamer was used to bleeding bone. The central drill was used x2. The standard base plate was placed. This had excellent purchase. Locking screws x 2 were placed. The glenosphere was placed, the set screw was tightened. Attention then returned to the humerus. We placed a high eccentric standard base plate and standard poly. We reduced the shoulder and took it through a range of motion. It was found to be stable with appropriate soft tissue tension. Trial humeral components were removed. The biceps was tenodesed in the bicipital groove with drill holes and our previously placed FiberWire suture. We placed #2 FiberWire sutures in the lesser tuberosity for subsequent subscap repair. We assembled the humeral component on the back table. We placed it in the center of our subscapularis repair sutures and tapped it down to our humeral cut. This had excellent purchase. The shoulder was reduced and again was found to be stable with appropriate soft tissue tension. We did a 3 min dilute Betadine solution soak. We irrigated the wound with 3 L of normal saline via pulse lavage. We repaired the subscapularis to the lesser tuberosity with our previously placed FiberWire sutures. The deltopectoral interval was loosely reapproximated with an 0 Vicryl in an interrupted [id number] fashion. Subcutaneous tissues were closed with the 2-0 Vicryl and a running 3-0 Monocryl suture. A dry dressing and sling were applied. Sponge and needle counts were correct x2. The patient tolerated the procedure well, there were no apparent complications. They were awakened and extubated in the operating room, taken to the postanesthesia care unit in satisfactory condition. PLAN: The patient will be mobilized with physical therapy. The sling will be used for 6 weeks postoperatively. Active range of motion in forward flexion and abduction as tolerates. No external rotation greater than 0? for 6 weeks postoperatively. They will be discharged to home once medically appropriate.
--- NOTE | 2024-11-28 11:05 | P.ANES_ITS ---
Anesthesia Charges Start Date/Time Anesthesia Start Date: 11/28/24 Anesthesia Start Time: 08:45 Stop Date/Time Anesthesia Stop Date: 11/28/24 Anesthesia Stop Time: 11:01 Summary Extremes of Age - Over 70 or under 1: TRIMMER MEAT Coding CPT Codes CPT Codes: ANESTH SHOULDER REPLACEMENT - 02161 ([id number]) P3 - PATIENT W/SEVERE SYS DISEASE, QK - MEMORY CARE DIRECTOR 2-4 CNCRNT ANES PROC, QX - TRIMMER MEAT SVC W/ MD MED DIRECTION Additional Codes: Summary - Extremes of Age - Over 70 or under 1: TRIMMER MEAT ([id number])
--- NOTE | 2024-11-28 11:05 | W.ANESCHARGE ---
Anesthesia Charges Start Date/Time Anesthesia Start Date: 11/28/24 Anesthesia Start Time: 08:45 Stop Date/Time Anesthesia Stop Date: 11/28/24 Anesthesia Stop Time: 11:01 Summary Extremes of Age - Over 70 or under 1: SENIOR NET SOFTWARE DEVELOPER Coding CPT Codes CPT Codes: ANESTH SHOULDER REPLACEMENT - 25582 ([id number]) P3 - PATIENT W/SEVERE SYS DISEASE, QK - ACCOUNT INSTALLATION SPECIALIST 2-4 CNCRNT ANES PROC, QX - SENIOR NET SOFTWARE DEVELOPER SVC W/ MD MED DIRECTION Additional Codes: Summary - Extremes of Age - Over 70 or under 1: SENIOR NET SOFTWARE DEVELOPER ([id number])
[2024-11-28] MEDS: LACTATED RINGERS 1000 ML 1,000 ML 75 ML IV (13:26)
[2024-11-28] MEDS: CEFAZOLIN 2 GM in 0.9 % SODIUM CHLORIDE Mini-bag 100 ML IVPB ×2 (15:02→23:18)
--- NOTE | 2024-11-28 15:25 | PC.NURSE ---
Pt is alert and oriented. Pt denies pain, Ice placed on left shoulder. Lactated ringer in Left hand IV. pt tolerates sips of water.?
--- NOTE | 2024-11-28 17:19 | PM.IMCN1 ---
Date of Consult Patient: Other Consult date: 11/28/24 Requesting Physician: Orthopedics Primary Care Provider: Parth Le MD Consult Narrative Narrative: Sandeep Topete is a 79 year old male admitted to the hospital for right reverse shoulder arthroplasty. Procedure performed by Dr. Sheridan. No complications. Dr. Sheridan requests consultation for management of medical problems following surgery. Patient reports that he is doing well at this time. He still has an affective nerve block and has very little feeling in his arm or shoulder. He is otherwise feeling well without nausea chills or dyspnea. He has not had any recent illness or injury. At his preop physical he was identified with a low potassium of 3.3 and he has been on potassium 20 mEq daily for the last few days. His potassium yesterday was 3.5. No other significant concerns in the perioperative evaluation. He was previously diagnosed with diabetes 1 year ago. He has lost about 55 lb and his hemoglobin A1c in July of this year was 5.9. He is not taking medications for diabetes. Managing with diet. He has hypertension managed with multiple medications. He has atrial fibrillation on anticoagulation with Eliquis and rate control with metoprolol and diltiazem. He held his Eliquis prior to surgery. He tells me he has previously had a stroke as well. The sequelae of this is some chronic dizziness. He has a diagnosis of COPD though is not significantly symptomatic. This is secondary to a remote history of smoking. He is on aspirin with Eliquis for unclear reasons. I have recommended he stop the aspirin and remain on Eliquis Review of Systems Narrative: Patient reports doing well with no recent illness or injury or active medical problems. [facility] Medical History (Updated 11/28/24 @ 17:51 by Ad Sheppard MD) Hypokalemia ?E87.6 - Hypokalemia (ICD-10) Transient ischemic attack (TIA) ?G45.9 - Transient cerebral ischemic attack, unspecified (ICD-10) Melanoma of skin ?C43.9 - Malignant melanoma of skin, unspecified (ICD-10) Chronic headache ?R51.9 - Headache, unspecified (ICD-10) ?G89.29 - Other chronic pain (ICD-10) GERD (gastroesophageal reflux disease) ?K21.9 - Gastro-esophageal reflux disease without esophagitis (ICD-10) Diabetes mellitus ?E11.9 - Type 2 diabetes mellitus without complications (ICD-10) COPD (chronic obstructive pulmonary disease) ?J44.9 - Chronic obstructive pulmonary disease, unspecified (ICD-10) Cataract ?H26.9 - Unspecified cataract (ICD-10) Benign prostatic hyperplasia ?N40.0 - Benign prostatic hyperplasia without lower urinary tract symptoms (ICD-10) ASCVD (arteriosclerotic cardiovascular disease) ?I25.10 - Atherosclerotic heart disease of [place] coronary artery without angina pectoris (ICD-10) Osteoarthritis ?M19.90 - Unspecified osteoarthritis, unspecified site (ICD-10) Bimalleolar ankle fracture ?S82.843A - Displaced bimalleolar fracture of unspecified lower leg, initial encounter for closed fracture (ICD-10) Morbid obesity ?E66.01 - Morbid (severe) obesity due to excess calories (ICD-10) Erectile dysfunction ?N52.9 - Male erectile dysfunction, unspecified (ICD-10) History of CVA (cerebrovascular accident) ?Z86.73 - Personal history of transient ischemic attack (TIA), and cerebral infarction without residual deficits (ICD-10) Hyperlipidemia ?E78.5 - Hyperlipidemia, unspecified (ICD-10) Obstructive sleep apnea on CPAP ?G47.33 - Obstructive sleep apnea (adult) (pediatric) (ICD-10) Hypertension ?I10 - Essential (primary) hypertension (ICD-10) Atrial fibrillation ?I48.91 - Unspecified atrial fibrillation (ICD-10) Surgical History (Updated 11/28/24 @ 17:31 by Ad Sheppard MD) Status post reverse arthroplasty of right shoulder (11/28/24) ?Z96.611 - Presence of right artificial shoulder joint (ICD-10) H/O thumb surgery (08/19/23) ?Z98.890 - Other specified postprocedural states (ICD-10) H/O repair of rotator cuff (~1989) ?Z98.890 - Other specified postprocedural states (ICD-10) History of arthroscopy of left shoulder (10/20/11) ?Z98.890 - Other specified postprocedural states (ICD-10) History of arthroscopy of right shoulder (07/30/15) ?Z98.890 - Other specified postprocedural states (ICD-10) S/P ORIF (open reduction internal fixation) fracture (04/16/20) ?Z98.890 - Other specified postprocedural states (ICD-10) ?Z87.81 - Personal history of (healed) traumatic fracture (ICD-10) 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 Primary care is through the [facility] in [place]. Remote history of smoking. He occasionally drinks alcohol but not every day. He spends his loza in the [place] What is your current living situation?: I presently have a place to live Problems where you live: no known problems Problems where you live details: na In the past 12 months, utilities in danger of being shut off: no In past 12 months, lack of transportation kept you from medical appts, meetings, work, or getting things needed for daily living: no In the past 12 mos, have been you worried that your food would run out before you had money to buy more?: never true In the past 12 mos, the food you bought just didn't last and you didn't have money to buy more?: never true Smoking Status: Former smoker What tobacco products do you use: cigarettes Smoking quit date/years: >15 years ago Do you use any of these nicotine containing products: None Second hand tobacco smoke exposure: No How often do you have a drink containing alcohol: monthly or less How many standard drinks containing alcohol do you have on a typical day: 1 or 2 AUDIT-C Alcohol total score: 1 Non-prescribed substance use: denies use Caffeine: Yes How often does anyone, including family, friends and others, physically hurt you: never How often does anyone, including family, friends and others, insult or talk down to you: never How often does anyone, including family, friends and others, threaten you with harm: never How often does anyone, including family, friends and others, scream or curse at you: never service: Yes Meds Home Medications and Allergies Home Medications ?Medication ?Instructions ?Recorded ?Confirmed ?Type apixaban 5 mg tablet (Eliquis) 5 mg PO BID 04/19/23 11/28/24 History atorvastatin 20 mg tablet 20 mg PO DAILY 04/19/23 11/28/24 History chlorthalidone 25 mg tablet 25 mg PO DAILY 04/19/23 11/28/24 History clobetasol 0.05 % topical cream topical BID PRN 04/19/23 11/08/24 History clotrimazole-betamethasone 1 applic topical BID PRN 04/19/23 11/08/24 History %-0.05 % topical cream diltiazem HCl 120 mg 120 mg PO DAILY 04/19/23 11/28/24 History capsule,extended release 24 hr finasteride 5 mg tablet 5 mg PO DAILY 04/19/23 11/28/24 History losartan 100 mg tablet 100 mg PO DAILY 04/19/23 11/28/24 History metoprolol succinate 100 mg 100 mg PO DAILY 04/19/23 11/28/24 History tablet,extended release 24 hr mupirocin 2 % topical ointment 1 applic topical BID 04/19/23 11/28/24 History omeprazole 20 mg capsule,delayed 20 mg PO DAILY 04/19/23 11/28/24 History release tamsulosin 0.4 mg capsule 0.4 mg PO DAILY 04/19/23 11/28/24 History tramadol 50 mg tablet 50 - 100 mg PO Q6H PRN moderate 04/19/23 11/28/24 History pain trazodone 100 mg tablet 100 mg PO QPM PRN insomnia 08/07/24 11/28/24 History cholecalciferol (vitamin D3) 50 50 mcg PO QDAY 11/20/24 11/28/24 History mcg (2,000 unit) capsule coenzyme Q10 100 mg capsule (Co 100 mg PO QDAY 11/20/24 11/28/24 History Q-10) furosemide 20 mg tablet 20 mg PO DAILY edema 11/20/24 11/28/24 History magnesium citrate 100 mg capsule 100 mg PO QDAY 11/20/24 11/28/24 History multivitamin 1 tab PO QDAY 11/20/24 11/28/24 History omega-3 fatty acids 1,000 mg 2,000 mg PO QDAY 11/20/24 11/28/24 History capsule sildenafil 100 mg tablet 100 mg PO QDAY PRN 11/20/24 11/28/24 History vitamin B complex 1 cap PO QDAY 11/20/24 11/28/24 History vitamin E mixed 100 unit capsule 100 unit PO DAILY 11/20/24 11/28/24 History acetaminophen 500 mg capsule 500 - 1,000 mg (1 - 2 x 500 mg) PO 11/28/24 Rx Q6H PRN pain #100 caps hydromorphone 2 mg tablet 2 mg PO Q6H PRN pain #28 tabs 11/28/24 Rx potassium chloride 10 mEq 10 meq PO DAILY #30 tabs 11/28/24 Rx tablet,extended release sennosides 8.6 mg tablet (Senna 17.2 mg (2 x 8.6 mg) PO BID PRN 11/28/24 Rx Lax) constipation #100 tabs Allergies Allergy/AdvReac Type Severity Reaction Status Date / Time oxycodone AdvReac Severe Confusion Verified 11/28/24 08:08 Exam Narrative: Exam Narrative: He is alert appears in no distress. He gives his own history. Respirations are clear to auscultation. Cardiovascular: S1, S2, irregularly irregular. Abdomen: Bowel sounds active. Abdomen is soft without tenderness or mass. Right upper extremity is numb from his nerve block. He can move his fingers a little bit. He has intact radial pulse and good capillary refill. Other 3 extremities are normal except 2+ edema in both ankles. Const: Vital Signs, click to edit/add: Vital Signs - 24 hr 11/28/24 07:30 11/28/24 11:00 11/28/24 11:05 Temperature 98.5 F 97 F L Pulse Rate 47 L 60 60 Pulse Rate [Left P ulse Oximeter] Respiratory Rate 18 14 14 Blood Pressure 147/95 H 166/88 H 173/91 H Blood Pressure [Le ft Arm] Pulse Oximetry 98 90 100 Oxygen Delivery Me thod Room Air Nasal Cannula Nasal Cannula Oxygen Flow Rate 5 5 11/28/24 11:10 11/28/24 11:15 11/28/24 11:20 Temperature Pulse Rate 64 64 61 Pulse Rate [Left P ulse Oximeter] Respiratory Rate 14 14 14 Blood Pressure 154/100 H 164/91 H 179/96 H Blood Pressure [Le ft Arm] Pulse Oximetry 99 99 98 Oxygen Delivery Me thod Nasal Cannula Nasal Cannula Nasal Cannula Oxygen Flow Rate 3 3 3 11/28/24 11:25 11/28/24 11:30 11/28/24 11:39 Temperature 97 F L 95.7 F L Pulse Rate 60 61 Pulse Rate [Left P ulse Oximeter] 58 L Respiratory Rate 14 14 17 Blood Pressure 136/93 H 166/82 H Blood Pressure [Le ft Arm] 150/85 H Pulse Oximetry 98 96 93 Oxygen Delivery Me thod Nasal Cannula Room Air Room Air Oxygen Flow Rate 1 11/28/24 11:45 11/28/24 12:00 11/28/24 12:15 Temperature 96.9 F L Pulse Rate Pulse Rate [Left P ulse Oximeter] 53 L 56 L 52 L Respiratory Rate 16 18 16 Blood Pressure Blood Pressure [Le ft Arm] 156/86 H 146/84 H 149/76 H Pulse Oximetry 92 92 93 Oxygen Delivery Me thod Room Air Room Air Room Air Oxygen Flow Rate 11/28/24 12:30 11/28/24 13:00 11/28/24 13:30 Temperature 96.1 F L Pulse Rate Pulse Rate [Left P ulse Oximeter] 56 L 57 L 60 Respiratory Rate 16 18 16 Blood Pressure Blood Pressure [Le ft Arm] 158/80 H 174/81 H 170/87 H Pulse Oximetry 95 94 95 Oxygen Delivery Me thod Room Air Room Air Room Air Oxygen Flow Rate 11/28/24 14:30 11/28/24 15:00 11/28/24 15:00 Temperature 96.2 F L Pulse Rate Pulse Rate [Left P ulse Oximeter] 62 Respiratory Rate 17 17 18 Blood Pressure Blood Pressure [Le ft Arm] 173/81 H Pulse Oximetry 95 96 Oxygen Delivery Me thod Room Air Room Air Oxygen Flow Rate Assessment and Plan Assessment and plan (1) Status post reverse arthroplasty of right shoulder: Problem comment: Right upper extremity reverse shoulder arthroplasty, biceps tenodesis (11/28/2024, Dr. Sheridan) Status: Acute (2) ASCVD (arteriosclerotic cardiovascular disease): Problem comment: Continue disease modifying medications as tolerated Status: Acute (3) Hypertension: Problem comment: Resume home blood pressure medicines Status: Acute (4) Atrial fibrillation: Problem comment: Continue metoprolol, diltiazem for rate control. continue Eliquis for stroke prophylaxis. Stop aspirin Status: Acute (5) Hypokalemia: Problem comment: Continue outpatient potassium replacement with follow-up in 2-3 weeks Status: Acute Plan Patient has been the hospital for management of postoperative care and managing chronic medical problems postoperatively. Total Time Spent Total Time Spent: Total time spent today is 40 minutes in coordination of care, review of outside records and discussing with patient and about ongoing plan of care
[2024-11-28] MEDS: SENNOSIDES 1 TAB TABLET 2 TAB PO (20:52)
[2024-11-28] MEDS: TRAZODONE HCL 50 MG TABLET 100 MG PO (20:53)
--- NOTE | 2024-11-28 22:54 | PC.NURSE ---
end of shift: Pt. is AOX4. VSS. Pt. denies pain, N/V. Bilateral 1+ pitting edema. TEDS applied. Bilateral SCDs. Pt. is up and AMB in hallway with DORA.
[2024-11-29 02:40] VITALS: BP 170/102; PULSE 76; RESP 16; TEMP 36.4; O2SAT 96
[2024-11-29] MEDS: ACETAMINOPHEN 500 MG TABLET 1000 MG PO ×2 (02:42→08:43)
[2024-11-29 03:32] VITALS: BP 168/90; PULSE 65; RESP 16
[2024-11-29] MEDS: OMEPRAZOLE 20 MG CAPSULE DR PO (06:41)
[2024-11-29 07:00] VITALS: BP 156/89; PULSE 75; RESP 18; TEMP 36.5; O2SAT 95
--- NOTE | 2024-11-29 07:17 | PC.NURSE ---
Pt is alert and oriented x3. Afebrile. Pt reports 0-5/10 pain in right shoulder, managed with ice pack and scheduled Tylenol and PRN medication. Pt is up SBA with gait belt, voiding, and tolerating a regular diet.?
[2024-11-29] MEDS: SENNOSIDES 1 TAB TABLET 2 TAB PO (08:44)
[2024-11-29] MEDS: TAMSULOSIN HCL 0.4 MG CAPSULE PO (08:44)
[2024-11-29] MEDS: CHLORTHALIDONE 25 MG TABLET PO (08:44)
[2024-11-29] MEDS: ATORVASTATIN CALCIUM 10 MG TABLET 20 MG PO (08:44)
[2024-11-29] MEDS: FUROSEMIDE 20 MG TABLET PO (08:44)
[2024-11-29] MEDS: APIXABAN 5 MG TABLET PO (08:44)
[2024-11-29] MEDS: FINASTERIDE 5 MG TABLET PO (08:44)
[2024-11-29] MEDS: METOPROLOL SUCCINATE (XL) 100 MG TAB PO (08:44)
--- NOTE | 2024-11-29 10:29 | PC.NURSE ---
Pt doing well today. VSS. Pain controlled well with pain medications, rest and ice. Pt is ambulating independently and tolerating regular diet. Pt discharged home via at 1015. Pt belongings and discharge instructions signed. No further questions or concerns at this time.
--- NOTE | 2024-11-29 10:51 | PM.ORPN ---
Subjective Subjective Time Seen by Provider: 07:15 Date Seen: 11/29/24 Principal diagnosis: Status post right reverse shoulder arthroplasty Interval history: Sandeep is comfortable this morning. He has ice pack on, sling. He will be discharging to home today. Ortho Exam Narrative Exam Narrative: Alert and oriented x3. Patient is in no acute distress. Converses without labored breathing. Hearing is grossly intact. Ambulates with a normal gait. Examination of right upper extremity shows the dressing is intact. Mild ecchymosis. Mild soft tissue edema. Block is working well. He is able to flex and extend his wrist and fingers. Sensation is returning in the hand. No erythema or warmth or sign of infection. Capillary refill less than 2 seconds. Const Vital Signs, click to edit/add: Vital Signs - 24 hr 11/28/24 11:00 11/28/24 11:05 11/28/24 11:10 Temperature 97 F L Pulse Rate 60 60 64 Pulse Rate [Left Pulse Oximeter] Respiratory Rate 14 14 14 Blood Pressure 166/88 H 173/91 H 154/100 H Blood Pressure [Left Arm] Pulse Oximetry 90 100 99 Oxygen Delivery Method Nasal Cannula Nasal Cannula Nasal Cannula Oxygen Flow Rate 5 5 3 11/28/24 11:15 11/28/24 11:20 11/28/24 11:25 Temperature Pulse Rate 64 61 60 Pulse Rate [Left Pulse Oximeter] Respiratory Rate 14 14 14 Blood Pressure 164/91 H 179/96 H 136/93 H Blood Pressure [Left Arm] Pulse Oximetry 99 98 98 Oxygen Delivery Method Nasal Cannula Nasal Cannula Nasal Cannula Oxygen Flow Rate 3 3 1 11/28/24 11:30 11/28/24 11:39 11/28/24 11:45 Temperature 97 F L 95.7 F L Pulse Rate 61 Pulse Rate [Left Pulse Oximeter] 58 L 53 L Respiratory Rate 14 17 16 Blood Pressure 166/82 H Blood Pressure [Left Arm] 150/85 H 156/86 H Pulse Oximetry 96 93 92 Oxygen Delivery Method Room Air Room Air Room Air Oxygen Flow Rate 11/28/24 12:00 11/28/24 12:15 11/28/24 12:30 Temperature 96.9 F L Pulse Rate Pulse Rate [Left Pulse Oximeter] 56 L 52 L 56 L Respiratory Rate 18 16 16 Blood Pressure Blood Pressure [Left Arm] 146/84 H 149/76 H 158/80 H Pulse Oximetry 92 93 95 Oxygen Delivery Method Room Air Room Air Room Air Oxygen Flow Rate 11/28/24 13:00 11/28/24 13:30 11/28/24 14:30 Temperature 96.1 F L 96.2 F L Pulse Rate Pulse Rate [Left Pulse Oximeter] 57 L 60 62 Respiratory Rate 18 16 17 Blood Pressure Blood Pressure [Left Arm] 174/81 H 170/87 H 173/81 H Pulse Oximetry 94 95 95 Oxygen Delivery Method Room Air Room Air Room Air Oxygen Flow Rate 11/28/24 14:32 11/28/24 15:00 11/28/24 15:00 Temperature 96.2 F L Pulse Rate Pulse Rate [Left Pulse Oximeter] 62 Respiratory Rate 17 17 18 Blood Pressure Blood Pressure [Left Arm] 173/81 H Pulse Oximetry 96 96 Oxygen Delivery Method Room Air Room Air Oxygen Flow Rate 11/28/24 15:32 11/28/24 16:32 11/28/24 17:32 Temperature 96.2 F L 96.2 F L 96.8 F L Pulse Rate Pulse Rate [Left Pulse Oximeter] 72 65 70 Respiratory Rate 18 18 18 Blood Pressure Blood Pressure [Left Arm] 174/99 H 170/96 H 177/92 H Pulse Oximetry 96 95 95 Oxygen Delivery Method Room Air Room Air Room Air Oxygen Flow Rate 11/28/24 19:00 11/28/24 23:00 11/28/24 23:00 Temperature 97.1 F L Pulse Rate Pulse Rate [Left Pulse Oximeter] 50 L 61 Respiratory Rate 16 16 Blood Pressure Blood Pressure [Left Arm] 142/79 H Pulse Oximetry 96 97 Oxygen Delivery Method Room Air Room Air Oxygen Flow Rate 11/29/24 02:40 11/29/24 03:32 11/29/24 07:00 Temperature 97.6 F Pulse Rate Pulse Rate [Left Pulse Oximeter] 76 65 Respiratory Rate 16 16 18 Blood Pressure Blood Pressure [Left Arm] 170/102 H 168/90 H Pulse Oximetry 96 95 Oxygen Delivery Method Room Air Room Air Oxygen Flow Rate 11/29/24 07:00 Temperature 97.7 F Pulse Rate Pulse Rate [Left Pulse Oximeter] 75 Respiratory Rate 18 Blood Pressure Blood Pressure [Left Arm] 156/89 H Pulse Oximetry 95 Oxygen Delivery Method Room Air Oxygen Flow Rate Assessment and Plan Assessment and plan (1) Status post reverse arthroplasty of right shoulder: Problem details: Right upper extremity reverse shoulder arthroplasty, biceps tenodesis (11/28/2024, Dr. Sheridan) Status: Acute Assessment and Plan: Plan for discharge is to home when they meet discharge criteria. Patient will wear the sling for 6 weeks post surgery. They can take it off for comfort and for exercises. Activity: no external rotation of the operative shoulder past 0? x 6 weeks. Forward flexion and abduction of the shoulder is allowed as tolerated. They will work on range of motion of the elbow, wrist, fingers once the block has wore off on the operative extremity. Patient will attend outpatient physical therapy for the operative shoulder . For discharge, oxycodone and Tylenol for pain. Do not drive while on narcotic pain medication. Drive only when safe to do so, when they have normal use/function of the upper extremity, this will likely take 6 weeks. Patient will minimize and discontinue the narcotic as soon as possible. Remove dressing in 2 weeks. Dressing is waterproof. May shower. Surgical glue covers the wound. Do not scrub the wound. Expect swelling and bruising about the shoulder and upper extremity. Use of ice/active ice without restriction. Notify Orthopedics if swelling is excessive. notify Orthopedics with any questions or concerns. [phone] Return to Orthopedic clinic 12/13/2024 for a wound check Return to clinic in [address] Sheridan.
== END 2024-11-29 10:15 | disposition home or self-care (01) ==
LOC: OR 07:04 → MEDSURG 07:05
PROVIDERS: PCP Family Medicine; Visit Provider Orthopaedic Surgery
PROC: 0RRJ0JZ Replacement of Right Shoulder Joint with Synthetic Substitute, Open Approach (ICD-10-PCS; CPT 23472; principal; 2024-11-28 08:45)
DX: M75.101 Unspecified rotator cuff tear or rupture of right shoulder, not specified as traumatic (principal); M12.811 Other specific arthropathies, not elsewhere classified, right shoulder; G89.18 Other acute postprocedural pain; E11.9 Type 2 diabetes mellitus without complications; E87.6 Hypokalemia; E66.01 Morbid (severe) obesity due to excess calories; Z68.31 Body mass index [BMI] 31.0-31.9, adult; I48.91 Unspecified atrial fibrillation; I10 Essential (primary) hypertension; G47.33 Obstructive sleep apnea (adult) (pediatric); Z79.82 Long term (current) use of aspirin; Z79.01 Long term (current) use of anticoagulants; J44.9 Chronic obstructive pulmonary disease, unspecified; I25.10 Atherosclerotic heart disease of native coronary artery without angina pectoris; Z86.73 Personal history of transient ischemic attack (TIA), and cerebral infarction without residual deficits
CPT/HCPCS: 23472; 23430; 01638; 64415; 73030; 76942; 82962; 97110; 97165; 97535; 99100; G0463; A9270; C1713; C1776; J0690; J1100; J2250; J2371; J2405; J2704; J2795; J3010; J3490; J7120; L3670